=== PATIENT | female | born 1940 | race Caucasian/White ===

== ENCOUNTER 2020-07-02 19:29 | Inpatient (IN) | payer MEDICARE, BC ==
[~2020-07-02] VITALS: Ht 165.1 cm; Wt 106.6 kg
[2020-07-02] MEDS ORDERED: dilTIAZem 25 MG/5 ML VIAL IVP ONE ×2 (20:00→20:30)
[2020-07-02] MEDS ORDERED: dilTIAZem VIAL 125 MG in IV NORMAL SALINE 100ML 100 ML IV ONE (20:00)
[2020-07-02] MEDS ORDERED: IV RINGERS SOLUTION,LACTATED 1,000 ML IV ONE ×2 (20:00→21:15)
[2020-07-02] MEDS ORDERED: IV NORMAL SALINE 100ML 100 ML ONE ×2 (20:00→21:21)
--- NOTE | 2020-07-02 20:16 | PHYS DOC ---
Adult General Chief Complaint Chief Complaint: WEAKNESS/GENERALIZED HPI HPI Patient is a 79-year-old female who presents to the emergency department via EMS. Patient has no complaints. EMS core drill operator helper states they were called out to the residence because their neighbor had concerns when she came over to help the patient with her medications. Morphology Teacher had concerns that the patient appeared short of breath, appeared to have cellulitis of both her lower extremities. Morphology Teacher also states the patient's left wrist looked reddened. Morphology Teacher had social concerns for the patient's ability to care for herself and for her . The patient does complain of left wrist pain when asked. Patient denies chest pain, denies shortness of breath, denies chest congestion, denies nasal congestion, denies recent fever or chills, denies rashes of her skin, states that she uses a walker to ambulate around her home. Patient reports she lives at home with her who had a stroke "sometime back "and requires total care. Patient's is at bedside. (LILY MATHEW APRN) Review of Systems Review of Systems 14 body systems of review of systems have been reviewed. See HPI for pertinent positives and negative responses, otherwise all other systems are negative, nonpertinent or noncontributory. (LILY MATHEW APRN) Current Medications Current Medications Current Medications Medications (Trade) Dose Ordered Sig/Jacqueline Start Time Stop Time Status Last Admin Dose Admin Diltiazem HCl (Cardizem Iv Push) 25 mg 1X ONCE 07/02/20 20:00 07/02/20 20:01 UNV Diltiazem HCl 125 mg/Sodium Chloride 125 ml @ 5 mls/hr 1X ONCE 07/02/20 20:00 07/03/20 20:59 UNV (LILY MATHEW APRN) Physical Exam Physical Exam Constitutional: Well developed, well nourished, no acute distress, non-toxic appearance. Patient in mild respiratory distress. HENT: Normocephalic, atraumatic, bilateral external ears normal, oropharynx moist, no oral exudates, nose normal. Oropharynx moist, pink, no signs of tonsillar or deep tissue infection. Bilateral TMs within normal limits. Eyes: PERRLA, EOMI, conjunctiva normal, no discharge. Neck: Normal range of motion, no tenderness, supple, no stridor. No midline spinal tenderness, no nuchal rigidity, no meningismus signs appreciated. Cardiovascular:Heart rate rapid with irregular rhythm. Lungs & Thorax: Bilateral breath sounds clear to auscultation all lung mendez, diminished at bases, no other adventitious lung sounds appreciated. Abdomen: Bowel sounds normal, soft, no tenderness, no masses, no pulsatile masses. Abdomen round, patient obese. Skin: Warm, dry, no erythema, no rash. Except for under lower abdominal fold into periarea is red, excoriated, consistent with fungal infection. Back: No tenderness of the spine or structures of the patient's back to palpation. Extremities: No tenderness, no cyanosis, no clubbing, ROM intact, no edema. 2+ pitting edema bilateral lower extremities. Left upper extremity reddened at the wrist area, no crepitus appreciated, distal cap refill less than 2 seconds, 2+ radial pulse. Increased pain with palpation to the wrist ulnar aspect. Neurologic: Alert and oriented X 3, normal motor function, normal sensory function, no focal deficits noted. Psychologic: Affect normal, judgement normal, mood normal. (LILY MATHEW APRN) EKG EKG EKG performed at 1948 shows A. fib RVR with a heart rate 152 bpm, QTc interval 0.455, no acute STEMI, no ACS, no acute ischemia appreciated, EKG interpreted by ED physician Dr. Nolasco. (LILY MATHEW APRN) Radiology/Procedures Radiology/Procedures [] (LILY MATHEW APRN) Heart Score C/O Chest Pain: No HEART Score for Chest Pain: HEART Score for Chest Pain Response (Comments) Value History Slighlty/Non-Suspicious 0 ECG Normal 0 Age > 65 2 Total 2 Risk Factors: Risk Factors: DM, Current or recent (<one month) smoker, HTN, HLP, family history of CAD, obesity. Risk Scores: Risk Factors: DM, Current or recent (<one month) smoker, HTN, HLP, family history of CAD, obesity. (LILY MATHEW APRN) Course & Med Decision Making Course & Med Decision Making Pertinent Labs and Imaging studies reviewed. (See chart for details) 79-year-old female, vital signs reviewed, presents emergency department brought by EMS for social reasons. Patient has no complaints. Patient's physical examination is concerning for cardiorespiratory versus infectious process. And ED work-up was initiated. Patient's EKG concerning for A. fib RVR, patient was treated with 2 boluses Cardizem and a Cardizem drip. Patient's cath UA concerning for urinary tract infection along with 17.4 white blood cell count, patient concerning for sepsis with UTI, patient's labs show acute kidney injury with creatinine of 2.7. Discussed with patient recommendation for admission to the hospital, patient was amenable to this. Discussed patient case with [facility] inpatient physician Dr. Vigil who agreed to accept care of patient and admit to the intensive care unit for the diagnosis of A. fib RVR, acute kidney injury, sepsis, UTI, with the information he was given by me. Dr. Alaniz has assumed patient care at this time, patient awaiting bed in the ICU at [facility]. Patient cares for her at home who has history of stroke with severe mental deficits. Patient requires total care by patient at home, there are no known family members to care for patient's . Discussed case with warehouse director whom suggested patient be admitted for social admit, discussed this with Dr. Vigil who agreed to admit patient's for social admit. (LILY MATHEW APRN) Course & Med Decision Making Discussed patient's care, reviewed labs and EKG with [facility]. Agree with [facility]'s work- up and disposition. (CHARLEEN NOLASCO MD) Dragon Disclaimer Dragon Disclaimer This electronic medical record was generated, in whole or in part, using a voice recognition dictation system. (LILY MATHEW APRN) Departure Departure: Impression: Primary Impression: Atrial fibrillation with RVR Additional Impressions: Sepsis Urinary tract infection Acute kidney injury Disposition: 09 ADMITTED INPT THIS HOSP (Admit to Dr. Vigil to the ICU at [facility].) Admitting Physician: Desiree Vigil (LILY MATHEW APRN) Condition: GUARDED Referrals: NOLVIA PIZANO MD (PCP) Problem Qualifiers Additional Impressions: Sepsis Sepsis type: sepsis due to unspecified organism Sepsis acute organ dysfunction status: unspecified Qualified Codes: A41.9 - Sepsis, unspecified organism Urinary tract infection Urinary tract infection type: site unspecified Hematuria presence: with hematuria Qualified Codes: N39.0 - Urinary tract infection, site not specified; R31.9 - Hematuria, unspecified LILY MATHEW APRN Jul 02, 2020 20:16 CHARLEEN NOLASCO MD Jul 02, 2020 22:15
[2020-07-02 20:24] LABS: BASO % 0 % (0-3); EOS % 0 % (0-3); HEMATOCRIT 44.3 % (36.0-47.0); HEMOGLOBIN 14.5 g/dL (12.0-15.5); LYMPH % 6 % (24-48); MEAN CORPUSCULAR HEMOGLOBIN 32 pg (25-35); MEAN CORPUSCULAR HGB CONC 33 g/dL (31-37); MEAN CORPUSCULAR VOLUME 97 fL (79-100); MONO # 1.2 x10^3/uL (0.0-1.1); MONO % 7 % (0-9); NEUT # 15.1 x10^3uL (1.8-7.7); NEUT % 87 % (31-73); PLATELET COUNT 245 x10^3/uL (140-400); RED BLOOD COUNT 4.56 x10^6/uL (3.50-5.40); RED CELL DISTRIBUTION WIDTH 12.8 % (11.5-14.5); WHITE BLOOD COUNT 17.4 x10^3/uL (4.0-11.0)
--- NOTE | 2020-07-02 20:34 | RAD ---
AP chest. HISTORY: Tachycardia AP view was taken of the chest. Patient's taken a poor inspiration. There is mild linear atelectasis or scarring in both lung bases. Heart is normal in size. There is no pleural effusion. There are no o ther acute infiltrates. 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 IMPRESSION: 1. Poor inspiration. 2. Linear basilar scarring or atelectasis. 3. No other infiltrates. Electronically signed by: Zechariah Lopez MD (07/02/2020 8:32 PM) [facility]
[2020-07-02 20:35] LABS: BILIRUBIN,URINE NEG (NEG); CLARITY,URINE CLOUDY; COLOR,URINE YELLOW; GLUCOSE,URINE NEG (NEG); NITRITE,URINE NEG (NEG); UROBILINOGEN,URINE 0.2 mg/dL (0.2 mg/dL)
--- NOTE | 2020-07-02 20:35 | RAD ---
Right wrist 3 views. HISTORY: Injury, pain 3 views were taken of the right wrist. There is marked arthritis at the first carpal metacarpal joint with joint space narrowing and spurring. There is no acute fracture. There is arthritis at the inter phalangeal joint of the thumb with joint space narrowing and spurring. IMPRESSION: 1. Arthritis left wrist. 2. No acute fracture. Electronically signed by: Zechariah Lopez MD (07/02/2020 8:33 PM) [facility]
[2020-07-02 20:36] LABS: AMORPHOUS SEDIMENT,UR PRESENT /HPF; BACTERIA,URINE MANY /HPF (0-FEW); SQUAMOUS EPITHELIAL CELL,UR FEW /LPF; WBC,URINE >40 /HPF (0-4)
[2020-07-02 20:36] LABS: CALCIUM 9.7 mg/dL (8.5-10.1); CREATININE 2.7 mg/dL (0.6-1.0); GFR 17.1; POTASSIUM 4.3 mmol/L (3.5-5.1)
[2020-07-02 20:42] LABS: % BANDS 2 % (0-9); % LYMPHS 7 % (24-48); % MONOS 8 % (0-10); % SEGS 83 % (35-66); ALBUMIN 3.5 g/dL (3.4-5.0); ALBUMIN/GLOBULIN RATIO 0.8 (1.0-1.7); MAGNESIUM 2.1 mg/dL (1.8-2.4); PHOSPHORUS 3.4 mg/dL (2.6-4.7); PLT ESTIMATE ADEQUATE (ADEQUATE); TOTAL BILIRUBIN 1.4 mg/dL (0.2-1.0)
[2020-07-02] MEDS ORDERED: cefTRIAXone SODIUM 1 GM VIAL ONE (20:42)
[2020-07-02] MEDS ORDERED: IV NORMAL SALINE 50ML 50 ML ONE (20:42)
--- NOTE | 2020-07-02 22:13 | EKG ---
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
[2020-07-02 23:50] VITALS: BP 182/119
--- NOTE | 2020-07-02 23:50 | NUR ---
Pt admitted to ICU bed 2 from ER via [facility], accompanied by EMS and nursing staff. Pt moved over from rney to bed x3 assist. Pt here for c/o weakness/Falls, Afib with RVR and UTI. Admission assessment completed. Health history reviewed with pt. Home medication bottles here in belongings bag, reviewed with pt. Pt lives at home with her , who requires total care from her r/t hx of CVAs & Dementia. Pt's Magdy was also admitted to hospital on the Med/Surg unit for a social situation, as she is his primary caregiver and she required admission tonight. Pt attempted to void on bedpan, HR now in 150's. Holden catheter placed using aseptic technique, immediate return of 450cc of cloudy urine. Pt with excoriation and maceration under both breast & abd folds/pannus, pictures taken and placed in chart. Eliquis for VTE. Pt UTD of flu vaccine. Consult placed to rn case mgr/SW, PT/OT and Cardiology. Pt is on Cardizem gtt, with current HR 110-130's while laying in bed. Discussed POC, pt verbalize understanding. Call light in reach. Pt was given written information regarding hospital policies, unit procedures and contact persons. Valuables were checked and logged, left in room with pt.
[2020-07-03] VITALS (38 sets, daily range): BP systolic 124–168; BP diastolic 61–128
[2020-07-03] MEDS ORDERED: EZET10TA20 PO (00:48)
[2020-07-03] MEDS ORDERED: APIX5TAB5 PO (00:48)
[2020-07-03] MEDS ORDERED: METO50TA4 PO (00:48)
[2020-07-03] MEDS ORDERED: GLUC1TAB71 PO (00:48)
[2020-07-03] MEDS ORDERED: ATOR10TA60 PO (00:48)
[2020-07-03] MEDS ORDERED: IRBE300T23 PO (00:48)
[2020-07-03] MEDS ORDERED: ACET-422 PO (00:48)
[2020-07-03] MEDS ORDERED: CHOL200044 PO (00:48)
[2020-07-03] MEDS ORDERED: ACET500T68 PO (00:48)
[2020-07-03] MEDS: dilTIAZem VIAL 125 MG in IV NORMAL SALINE 100ML 100 ML IV PRN ×2 (05:40→15:29)
[2020-07-03] MEDS: APIXABAN 5 MG TABLET. PO SCH ×2 (09:52→20:12)
[2020-07-03 13:56] LABS: HEMATOCRIT 39.7 % (36.0-47.0); RED BLOOD COUNT 4.09 x10^6/uL (3.50-5.40); RED CELL DISTRIBUTION WIDTH 12.8 % (11.5-14.5); WHITE BLOOD COUNT 15.5 x10^3/uL (4.0-11.0)
[2020-07-03 14:03] LABS: CALCIUM 8.9 mg/dL (8.5-10.1); CREATININE 2.4 mg/dL (0.6-1.0); GFR 19.6; POTASSIUM 4.1 mmol/L (3.5-5.1)
[2020-07-03 14:10] LABS: ALBUMIN 2.8 g/dL (3.4-5.0); ALBUMIN/GLOBULIN RATIO 0.7 (1.0-1.7); TOTAL BILIRUBIN 1.1 mg/dL (0.2-1.0); TOTAL PROTEIN 6.9 g/dL (6.4-8.2)
[2020-07-03] MEDS ORDERED: ACETAMINOPHEN PO PRN (14:45)
[2020-07-03] MEDS ORDERED: DIPHENHYDRAMINE PO PRN (14:45)
--- NOTE | 2020-07-03 15:15 | HP ---
ADMIT DATE: 07/03/2020 HISTORY OF PRESENT ILLNESS: The patient is a 79-year-old female patient, who was brought to the Emergency Department via EMS. According to the hosted services analyst, they were called out to residence because their neighbor had concern when she came over to help the patient's with her medications. Machine Hand had concern that the patient appeared short of breath, appeared to have cellulitis of both lower extremities. They also stated that the patient's left breast looked reddened, hosted services analyst had social concern for the patient's ability to take care of herself and for her . The patient does complain of left wrist pain when asked, but denied any chest pain, denied any shortness of breath, denied any chest congestion, denied any nasal congestion, denied any recent fever or chills, denied any rashes. She lives at home with her who had a stroke, sometimes back and requires total care. She was extensively investigated in the Emergency Room. Her EKG showed that she was in atrial fibrillation with rapid ventricular response with a heart rate of 153. She has received 2 boluses of Cardizem and started on a Cardizem drip and a decision was made to admit here. However, initially, the patient refused and decided to leave against medical advice as she stated that she is worried about her who cannot take care of himself and eventually both the patient and her were admitted to the hospital, so that the patient can be given the appropriate care. Further investigation in the Emergency Room showed that she has leukocytosis, impaired kidney function. Urinalysis showed the urine showed positive for wbc's and large amount of bacteria. Her chest x-ray showed poor inspiration, linear basilar scarring, atelectasis, no other infiltrates and x-ray of her wrist joint showed arthritis of the left wrist joint, but no acute fracture. The patient was admitted with sepsis secondary to urinary tract infection, acute on chronic kidney injury and atrial fibrillation with rapid ventricular response. She was started on a Cardizem drip and apparently was continued on her Eliquis. PAST MEDICAL HISTORY: Significant for chronic kidney disease, morbid obesity with a body mass index more than 30, bilateral osteoarthritis of both knee joints, hypertensive disorder, chronic atrial fibrillation, hyperlipidemia, hyperglycemia, chronic pain syndrome and assisted current use of anticoagulation. PAST SURGICAL HISTORY: Unremarkable. FAMILY HISTORY: She is a single child. She has no brothers or sisters. Her father in his early 70s due to myocardial infarction and mother in her early 80s, also secondary to myocardial infarction. SOCIAL HISTORY: She is , has no children. She never smoked, does not drink alcohol or use any recreational drugs. 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 ALLERGIES: She has no known drug allergies. MEDICATIONS: She is currently on following medications: She is on apixaban 5 mg twice a day, Zetia 10 mg once a day, atorvastatin calcium 10 mg at bedtime, metoprolol succinate 50 mg twice a day, irbesartan 300 mg daily, acetaminophen 500 mg 3 times a day, acetaminophen PM 1 tablet once a day at bedtime for insomnia, ____ 50 mcg once a day and glucosamine ____ Osteo Bi-Flex tablet 1 tablet daily. REVIEW OF SYSTEMS: As per history of present illness. PHYSICAL EXAMINATION: GENERAL: On arrival to the Emergency Room, the patient was somewhat pale, tachypneic, tachycardic, but there is no jaundice or cyanosis. No lymphadenopathy, no thyromegaly. No jugular venous distention. Mild bilateral lower limb edema. VITAL SIGNS: Her heart rate on arrival was 145, blood pressure was 113/78, temperature was 99.1, respiratory rate was 34 and oxygen saturation was 93%. HEAD, EYES, EARS, NOSE AND THROAT: Showed normocephalic and atraumatic. NECK: Supple. HEART: Showed normal first and second heart sounds. No gallop, rub or murmur. CHEST: Showed central trachea, equally reduced expansion, reduced air entry, vesicular breath sounds. I could not appreciate any crepitation or rhonchi. ABDOMEN: Distended, soft, nontender. NEUROLOGIC: She is awake, alert, responding appropriately. All cranial nerves intact. EXTREMITIES: She moves extremities without difficulty, although she is complaining of weakness both lower extremities. LABORATORY DATA: Her lab work on admission showed a white cell count of 17,400; hemoglobin 14.5; hematocrit 44; MCV 97 and platelet count 245,000 with a manual differential showed 87% polymorphs, 6% lymphocytes and 7% monocytes. Her chemistry showed a serum sodium of 145, potassium 4.3, chloride 107, bicarbonate 22, anion gap of 16, BUN 38, creatinine was 2.7, estimated GFR was 17 mL per minute. Her glucose was 118, calcium was 8.3. Lactic acid was 1.7, phosphorus was 3.4, magnesium was 2.1. Total bilirubin and alkaline phosphatase slightly elevated. AST and ALT are normal. Her total protein was 8, albumin was 3.5. Her arterial blood gases showed a pH of 7.40, pCO2 of 31, pO2 of 30 and bicarbonate 19 that was a venous gases. Her prothrombin time was 11.6, INR 1.1, aPTT was 31 and D-dimer was 0.45. Urinalysis showed the urine was yellow, cloudy with a pH of 5.5, specific gravity of 1.030. There is more than 100 mg/dL protein. The urine was negative for glucose, ketones, moderate amount of blood, negative for nitrite and bilirubin, small amount of leukocyte esterase, 6-10 rbc's, more than 30 wbc's, and many bacteria. Her chest x-ray showed that inspiration was poor with linear basilar scarring, atelectasis, no other infiltrate. Her left wrist x-ray showed arthritis of the left wrist without any acute fracture. PLAN: The patient was admitted with atrial fibrillation with rapid ventricular response, urinary tract infection, sepsis and acute kidney injury. She was treated with Cardizem drip and after receiving 2 boluses of Cardizem in the Emergency Room as well as continued on apixaban and lactobacillus rhamnosus. We have consulted the rn dermatology and we will reconcile all her medications. AVIS LUCAS MD DR: ISSAC/rekha JOB#: [id number] / [id number]
[2020-07-03] MEDS: NYSTATIN TOPICAL POWDER 15GM BOTTLE. TP SCH ×2 (15:31→20:13)
[2020-07-03] MEDS: CHOLECALCIFEROL (VITAMIN D3) 1,000 UNIT TABLET PO SCH (15:31)
[2020-07-03] MEDS: EZETIMIBE 10 MG TABLET PO SCH (15:31)
[2020-07-03] MEDS ORDERED: METOPROLOL SUCC 24HR ER 50 MG TAB.ER.24H. PO SCH (15:40)
[2020-07-03] MEDS: IV RINGERS SOLUTION,LACTATED 1,000 ML IV SCH (17:45)
[2020-07-03] MEDS: METOPROLOL SUCC 24HR ER 50 MG TAB.ER.24H. PO SCH (17:50)
--- NOTE | 2020-07-03 18:32 | PDOC2 ---
CONSULT DOS: DATE: 07/03/20 TIME: 18:26 Reason for Consult: Rapid atrial fibrillation Referring Physician: Dr. Vigil Chief Complaint Shortness of breath, weakness Source: Chart review, Patient Problem List Problems Medical Problems: (1) Acute kidney injury Status: Acute (2) Atrial fibrillation with RVR Status: Acute (3) Sepsis Status: Acute (4) Urinary tract infection Status: Acute History of Present Illness The patient is a 79-year-old female who was admitted through the emergency room with a presentation of shortness of breath, increasing lower extremity edema and rapid atrial fibrillation. Significant lab included a white count of 17.4, p otassium of 4.1, creatinine of 2.4, troponin of less than 0.017 and a D-dimer 0.45. Patient's initial EKG showed rapid atrial fibrillation with a rate of greater than 150. She reportedly has a history of chronic atrial fibrillation, hypertension, hyperlipidemia and chronic kidney disease. On admission the patient was also found to have a probable urinary tract infection and is being treated by the primary service for this. She is a somewhat difficult historian but reports feeling more comfortable today. She denies chest pain. Her heart rate is approximately 100 bpm after IV Cardizem. She is continuing on Eliquis for which she is on at home Cardiovascular: AFIB, CAD, CHF, HTN, hyperipidemia Pulmonary: Bronchitis Musculoskeletal: Osteoarthritis Renal/: Chronic renal insuff Past Surgical History: No pertinent history Family History: Coronary Artery Disease, Heart Disease Smoke: No ALCOHOL: none Current Medications Current Medications Diltiazem HCl (Cardizem Iv Push) 25 mg 1X ONCE IVP Last administered on 07/02/20at 20:00; Start 07/02/20 at 20:00; Stop 07/02/20 at 20:01; Status DC Diltiazem HCl 125 mg/Sodium Chloride 125 ml @ 5 mls/hr 1X ONCE IV Last administered on 07/02/20at 20:02; Start 07/02/20 at 20:00; Stop 07/02/20 at 21:24; Status DC Lactated Ringer's 1,000 ml @ 1,000 mls/hr 1X ONCE IV Last administered on 07/02/20at 20:04; Start 07/02/20 at 20:00; Stop 07/02/20 at 20:59; Status DC Sodium Chloride 100 ml @ As Directed STK-MED ONCE .ROUTE ; Start 07/02/20 at 20:00; Stop 07/02/20 at 20:01; Status DC Diltiazem HCl (Cardizem) 125 mg STK-MED ONCE IV ; Start 07/02/20 at 20:01; Stop 07/02/20 at 20:01; Status DC Diltiazem HCl (Cardizem Iv Push) 25 mg 1X ONCE IVP Last administered on 07/02/20at 20:29; Start 07/02/20 at 20:30; Stop 07/02/20 at 20:31; Status DC Ceftriaxone Sodium 1 gm/ Sodium Chloride 50 ml @ 100 mls/hr 1X ONCE IV Last administered on 07/02/20at 20:46; Start 07/02/20 at 20:45; Stop 07/02/20 at 21:14; Status DC Sodium Chloride 50 ml @ As Directed STK-MED ONCE .ROUTE ; Start 07/02/20 at 20:42; Stop 07/02/20 at 20:43; Status DC Ceftriaxone Sodium (Rocephin) 1 gm STK-MED ONCE .ROUTE ; Start 07/02/20 at 20:42; Stop 07/02/20 at 20:43; Status DC Lactated Ringer's 1,000 ml @ 125 mls/hr 1X ONCE IV Last administered on 07/02/20at 21:15; Start 07/02/20 at 21:15; Stop 07/03/20 at 05:14; Status DC Sodium Chloride 100 ml @ As Directed STK-MED ONCE .ROUTE ; Start 07/02/20 at 21:21; Stop 07/02/20 at 21:21; Status DC Diltiazem HCl (Cardizem) 125 mg STK-MED ONCE IV ; Start 07/02/20 at 21:21; Stop 07/02/20 at 21:22; Status DC Diltiazem HCl 125 mg/Sodium Chloride 125 ml @ 5 mls/hr CONT PRN IV SEE I/O RECORD Last administered on 07/03/20at 15:29; Start 07/02/20 at 21:30 Ceftriaxone Sodium 1 gm/ Sodium Chloride 50 ml @ 100 mls/hr Q24H IV ; Start 07/03/20 at 21:00 Nystatin (Nystop) 1 susan BID TP Last administered on 07/03/20at 15:31; Start 07/03/20 at 09:00 Apixaban (Eliquis) 5 mg BID PO Last administered on 07/03/20at 09:52; Start 07/03/20 at 09:45 Lactobacillus Rhamnosus (Culturelle) 1 cap BID PO ; Start 07/03/20 at 21:00 Acetaminophen (Tylenol) 500 mg PRN TID PRN PO PAIN; Start 07/03/20 at 14:45 Atorvastatin Calcium (Lipitor) 10 mg QHS PO ; Start 07/03/20 at 21:00 EZETIMIBE (Zetia) 10 mg DAILY PO Last administered on 07/03/20at 15:31; Start 07/03/20 at 15:00 Metoprolol Succinate (Toprol Xl) 50 mg BID PO ; Start 07/03/20 at 15:40; Stop 07/03/20 at 16:57; Status DC Non-Formulary Medication (Acetaminophen/ Diphenhydramine (Acetaminophen Pm Caplet)) 1 each PRN QHS PRN PO INSOMNIA; Start 07/03/20 at 14:45; Status UNV Vitamin D (Vitamin D3) 2,000 unit DAILY PO Last administered on 07/03/20at 15:31; Start 07/03/20 at 15:00 Non-Formulary Medication (Glucosamine/D3/ Boswellia Magdalena (Osteo Bi-Flex Caplet)) 1 each DAILY PO ; Start 07/04/20 at 09:00; Status UNV Diphenhydramine HCl (Benadryl) 25 mg PRN QHS PRN PO INSOMNIA; Start 07/03/20 at 21:00 Metoprolol Succinate (Toprol Xl) 50 mg BID PO Last administered on 07/03/20at 17:50; Start 07/03/20 at 17:00 Lactated Ringer's 1,000 ml @ 75 mls/hr [id number] IV Last administered on 07/03/20at 17:45; Start 07/03/20 at 17:45 Active Scripts Active Reported D3-2000 (Cholecalciferol (Vitamin D3)) 50 Mcg Capsule 50 Mcg PO DAILY LAST DOSE GIVEN: DATE: TIME: NEXT DOSE DUE: DATE: TIME: Acetaminophen 500 Mg Tablet 500 Mg PO PRN TID PRN LAST DOSE GIVEN: DATE: TIME: NEXT DOSE DUE: DATE: TIME: Toprol Xl (Metoprolol Succinate) 50 Mg Tab.er.24h 50 Mg PO BID LAST DOSE GIVEN: DATE: TIME: NEXT DOSE DUE: DATE: TIME: Osteo Bi-Flex Caplet (Glucosamine/D3/Boswellia Magdalena) 1 Each Tablet 1 Each PO DAILY LAST DOSE GIVEN: DATE: TIME: NEXT DOSE DUE: DATE: TIME: Eliquis (Apixaban) 5 Mg Tab.ds.pk 5 Mg PO BID LAST DOSE GIVEN: DATE: TIME: NEXT DOSE DUE: DATE: TIME: Acetaminophen Pm Caplet (Acetaminophen/Diphenhydramine) 1 Each Tablet 1 Each PO PRN QHS PRN LAST DOSE GIVEN: DATE: TIME: NEXT DOSE DUE: DATE: TIME: Atorvastatin Calcium 10 Mg Tablet 10 Mg PO QHS LAST DOSE GIVEN: DATE: TIME: NEXT DOSE DUE: DATE: TIME: Irbesartan 300 Mg Tablet 300 Mg PO DAILY LAST DOSE GIVEN: DATE: TIME: NEXT DOSE DUE: DATE: TIME: Zetia (Ezetimibe) 10 Mg Tablet 10 Mg PO DAILY LAST DOSE GIVEN: DATE: TIME: NEXT DOSE DUE: DATE: TIME: Allergies: Coded Allergies: No Known Allergies (Verified Allergy, Unknown, 07/02/20) General: YES: Fatigue Respiratory: YES: SOB with excertion General: mild distress HEENT: Atraumatic Lungs: Other (Mildly decreased breath sounds) Heart: Other (Irregularly irregular) Abdomen: Normal bowel sounds VITALS Vital Signs Date Time Temp Pulse Resp B/P (MAP) Pulse Ox O2 Delivery O2 Flow Rate FiO2 07/03/20 17:50 104 147/73 07/03/20 17:00 19 90 Nasal Cannula 2.0 07/03/20 16:00 98.0 Labs Laboratory Tests Test 07/02/20 19:53 07/02/20 20:04 07/02/20 20:25 07/03/20 13:48 White Blood Count 17.4 x10^3/uL (4.0-11.0) 15.5 x10^3/uL (4.0-11.0) Red Blood Count 4.56 x10^6/uL (3.50-5.40) 4.09 x10^6/uL (3.50-5.40) Hemoglobin 14.5 g/dL (12.0-15.5) 13.0 g/dL (12.0-15.5) Hematocrit 44.3 % (36.0-47.0) 39.7 % (36.0-47.0) Mean Corpuscular Volume 97 fL (79-100) 97 fL (79-100) Mean Corpuscular Hemoglobin 32 pg (25-35) 32 pg (25-35) Mean Corpuscular Hemoglobin Concent 33 g/dL (31-37) 33 g/dL (31-37) Red Cell Distribution Width 12.8 % (11.5-14.5) 12.8 % (11.5-14.5) Platelet Count 245 x10^3/uL (140-400) 203 x10^3/uL (140-400) Neutrophils (%) (Auto) 87 % (31-73) Lymphocytes (%) (Auto) 6 % (24-48) Monocytes (%) (Auto) 7 % (0-9) Eosinophils (%) (Auto) 0 % (0-3) Basophils (%) (Auto) 0 % (0-3) Neutrophils # (Auto) 15.1 x10^3uL (1.8-7.7) Lymphocytes # (Auto) 1.0 x10^3/uL (1.0-4.8) Monocytes # (Auto) 1.2 x10^3/uL (0.0-1.1) Eosinophils # (Auto) 0.0 x10^3/uL (0.0-0.7) Basophils # (Auto) 0.0 x10^3/uL (0.0-0.2) Segmented Neutrophils % 83 % (35-66) Band Neutrophils % 2 % (0-9) Lymphocytes % 7 % (24-48) Monocytes % 8 % (0-10) Platelet Estimate Adequate (ADEQUATE) Prothrombin Time 11.6 SEC (9.4-11.4) Prothromb Time International Ratio 1.1 (0.9-1.1) Activated Partial Thromboplast Time 31 SEC (23-33) D-Dimer (Roshni) 0.45 mg/L (0.00-0.50) Sodium Level 145 mmol/L (136-145) 144 mmol/L (136-145) Potassium Level 4.3 mmol/L (3.5-5.1) 4.1 mmol/L (3.5-5.1) Chloride Level 107 mmol/L (98-107) 111 mmol/L (98-107) Carbon Dioxide Level 22 mmol/L (21-32) 25 mmol/L (21-32) Anion Gap 16 (6-14) 8 (6-14) Blood Urea Nitrogen 38 mg/dL (7-20) 34 mg/dL (7-20) Creatinine 2.7 mg/dL (0.6-1.0) 2.4 mg/dL (0.6-1.0) Estimated GFR (Cockcroft-Gault) 17.1 19.6 BUN/Creatinine Ratio 14 (6-20) 14 (6-20) Glucose Level 118 mg/dL (70-99) 124 mg/dL (70-99) Lactic Acid Level 1.7 mmol/L (0.4-2.0) Calcium Level 9.7 mg/dL (8.5-10.1) 8.9 mg/dL (8.5-10.1) Phosphorus Level 3.4 mg/dL (2.6-4.7) Magnesium Level 2.1 mg/dL (1.8-2.4) Total Bilirubin 1.4 mg/dL (0.2-1.0) 1.1 mg/dL (0.2-1.0) Aspartate Amino Transf (AST/SGOT) 16 U/L (15-37) 18 U/L (15-37) Alanine Aminotransferase (ALT/SGPT) 21 U/L (14-59) 20 U/L (14-59) Alkaline Phosphatase 125 U/L (46-116) 106 U/L (46-116) Troponin I Quantitative < 0.017 ng/mL (0-0.055) Total Protein 8.0 g/dL (6.4-8.2) 6.9 g/dL (6.4-8.2) Albumin 3.5 g/dL (3.4-5.0) 2.8 g/dL (3.4-5.0) Albumin/Globulin Ratio 0.8 (1.0-1.7) 0.7 (1.0-1.7) Thyroid Stimulating Hormone (TSH) 2.095 uIU/mL (0.358-3.740) Urine Collection Type U cath Urine Color Yellow Urine Clarity Cloudy Urine pH 5.5 Urine Specific [place] >=1.030 Urine Protein >100 mg/dl (NEG-TRACE) Urine Glucose (UA) Neg mg/dL (NEG) Urine Ketones (Stick) Trace mg/dL (NEG) Urine Blood Mod (NEG) Urine Nitrite Neg (NEG) Urine Bilirubin Neg (NEG) Urine Urobilinogen Dipstick 0.2 mg/dL (0.2 mg/dL) Urine Leukocyte Esterase Small (NEG) Urine RBC 6-10 /HPF (0-2) Urine WBC >40 /HPF (0-4) Urine Squamous Epithelial Cells Few /LPF Urine Amorphous Sediment Present /HPF Urine Bacteria Many /HPF (0-FEW) Bedside Venous pH 7.40 (7.32-7.42) Bedside Venous pCO2 31 mmHg (41-51) Bedside Venous pO2 30 mmHg (20-40) Venous Blood HCO3 19 mmol/L (24-28) POC Venous O2 Saturation (Arthur) 59 % Bedside FiO2 21 Assessment/Plan 1. Rapid atrial fibrillation. Patient reportedly has chronic atrial fibrillation. She is on Eliquis at home and this has been continued. She is also on metoprolol at home. Her rate was significantly elevated as noted above and on IV Cardizem her rate is now approximately 100. Would attempt to taper off IV Cardizem as tolerated. Continue oral beta-blockers and will start low- dose oral calcium channel blockers as well. 2. Acute kidney insufficiency on chronic renal disease. Creatinine elevated to 2.4 as above. Be initially treated with fluids and close monitoring. 3. Hypertension. Under reasonable control at this time. We will monitor his medicines are adjusted. 4. Hyperlipidemia. Continue on home medications including Lipitor and Zetia. 5. Probable UTI. As per the primary service. Thank you for allowing us to participate in the care of your patient. LAUREN SUH MD Jul 03, 2020 18:32
[2020-07-03] MEDS: ATORVASTATIN CALCIUM 10 MG TABLET. PO SCH (20:12)
[2020-07-03] MEDS: LACTOBACILLUS RHAMNOSUS GG 1 CAPSULE. PO SCH (20:12)
[2020-07-03] MEDS: diphenhydrAMINE HCL 25 MG CAPSULE PO PRN (20:12)
[2020-07-03] MEDS: ACETAMINOPHEN 500 MG TABLET PO PRN (20:12)
[2020-07-04] VITALS (19 sets, daily range): BP systolic 103–166; BP diastolic 67–110
[2020-07-04] MEDS: dilTIAZem VIAL 125 MG in IV NORMAL SALINE 100ML 100 ML IV PRN (01:05)
[2020-07-04 06:33] LABS: HEMATOCRIT 39.1 % (36.0-47.0); HEMOGLOBIN 12.5 g/dL (12.0-15.5); RED BLOOD COUNT 3.9 x10^6/uL (3.50-5.40); RED CELL DISTRIBUTION WIDTH 13.1 % (11.5-14.5)
[2020-07-04 06:54] LABS: ALBUMIN 2.6 g/dL (3.4-5.0); ALBUMIN/GLOBULIN RATIO 0.6 (1.0-1.7); CALCIUM 9.1 mg/dL (8.5-10.1); CREATININE 2.5 mg/dL (0.6-1.0); GFR 18.7; TOTAL BILIRUBIN 0.6 mg/dL (0.2-1.0); TOTAL PROTEIN 6.8 g/dL (6.4-8.2)
[2020-07-04] MEDS: IV RINGERS SOLUTION,LACTATED 1,000 ML IV SCH ×2 (07:05→20:25)
[2020-07-04] MEDS ORDERED: NON FORMULARY ITEM (Glucosamine/D3/Boswellia Serra (Osteo Bi-Flex Caplet) 1 EACH) PO SCH (09:00)
[2020-07-04] MEDS: APIXABAN 5 MG TABLET. PO SCH ×2 (10:08→20:30)
[2020-07-04] MEDS: LACTOBACILLUS RHAMNOSUS GG 1 CAPSULE. PO SCH ×2 (10:08→20:22)
[2020-07-04] MEDS: METOPROLOL SUCC 24HR ER 50 MG TAB.ER.24H. PO SCH ×2 (10:08→20:30)
[2020-07-04] MEDS: CHOLECALCIFEROL (VITAMIN D3) 1,000 UNIT TABLET PO SCH (10:08)
[2020-07-04] MEDS: EZETIMIBE 10 MG TABLET PO SCH (10:08)
[2020-07-04] MEDS: NYSTATIN TOPICAL POWDER 15GM BOTTLE. TP SCH ×2 (10:17→20:37)
[2020-07-04] MEDS ORDERED: FUROSEMIDE 40 MG/4 ML VIAL IVP ONE (13:30)
--- NOTE | 2020-07-04 13:48 | PN ---
DATE: 07/04/2020 SUBJECTIVE: The patient is sitting comfortably in her recliner, in no apparent distress. She is feeling generally better. She is more awake, alert. She is not short of breath and her legs are swelling much, was able to walk with a walker for short distances. Denied any chest pain. Denied any dizziness or lightheadedness. She was on a Cardizem drip that was discontinued and she is now on Cardizem 120 mg once a day together with metoprolol 50 mg twice a day. PHYSICAL EXAMINATION: GENERAL: When I examined her, she looked well. There was definitely no pallor, jaundice, cyanosis or thyromegaly. No jugular venous distension. No limb edema. VITAL SIGNS: Her heart rate was 97, blood pressure was 147/89, temperature was 98, respiratory rate was 16, and oxygen saturation was 91% on 2 liters of oxygen. Without oxygen had dropped down to 88%. HEAD, EYES, EARS, NOSE AND THROAT: Showed normocephalic, atraumatic. NECK: Supple. HEART: Showed normal first and second heart sounds with no gallop, rub or murmur. CHEST: Showed central trachea, equal bilateral chest expansion, air entry, vesicular sounds, very few crepitations bilaterally. I could not appreciate any rhonchi. ABDOMEN: Distended, soft, nontender. NEUROLOGIC: She is more awake, alert, responding appropriately. All cranial nerves are intact. She moves extremities without difficulty. She ambulates with a walker. She has an indwelling Holden catheter. Her intake over the last 24 hours was 2400, output was 1050. LABORATORY DATA: As of this morning, her white cell count is down to 14,000, hemoglobin 12.5, hematocrit 39, MCV 100, and platelet count of 198,000. Her serum sodium was 144, potassium 4, chloride 110, bicarbonate 23, anion gap of 11, BUN 38, creatinine 2.5, estimated GFR was 18 mL per minute. Her glucose was 100, calcium was 9.1. Total bilirubin, AST, ALT, alkaline phosphatase were normal. Her total protein was 6.8, albumin was 2.6. Her D-dimer was 0.45. Her PT, INR and aPTT are all normal and urinalysis was consistent with urinary tract infection. Her urine culture has so far grown more than 100,000 colony forming per mL of gram-negative rods identified as Escherichia coli. The sensitivity is still pending. Her blood cultures so far showed no growth after 1 day. ASSESSMENT: In summary, this is a 79-year-old female patient who was admitted with atrial fibrillation with rapid ventricular response. The patient is known to have chronic atrial fibrillation. She is on Eliquis as well as metoprolol. She was treated with IV Cardizem boluses and Cardizem drip that was discontinued this morning. She is now on both calcium channel marlee as well as beta blockers and her heart rate is much improved. Acute kidney injury on chronic kidney disease: Her creatinine is down from 2.7-2.5. Other medical problems include hypertension and hyperlipidemia. She has urinary tract infection with growth of more than 100,000 colony forming units per mL of gram-negative rods identified as Escherichia coli. PLAN: My plan is to continue with diltiazem and metoprolol to control the heart rate. Continue with apixaban for stroke prevention. Continue with ceftriaxone for UTI, atorvastatin for hyperlipidemia. I will give her 40 mg of Lasix as she continued to have some shortness of breath and hypoxia and repeat all her lab works again tomorrow. AVIS LUCAS MD DR: ISSAC/rekha JOB#: [id number] / [id number]
--- NOTE | 2020-07-04 19:31 | NUR ---
Pt wishes to have her best friend as medical power of channel marketing specialist Alma Nickerson- [phone]
[2020-07-04] MEDS: ACETAMINOPHEN 500 MG TABLET PO PRN (20:22)
[2020-07-04] MEDS: diphenhydrAMINE HCL 25 MG CAPSULE PO PRN (20:31)
[2020-07-04] MEDS: ATORVASTATIN CALCIUM 10 MG TABLET. PO SCH (20:31)
--- NOTE | 2020-07-05 06:13 | NUR ---
07/04/20 @1999- incorrect data entered. Pt not experiencing pain, rates 0/10. Addendum: 07/05/20 at 0618 by LORNE MUNGUIA RN Amended: Links added.
[2020-07-05 07:07] LABS: ALBUMIN 2.6 g/dL (3.4-5.0); ALBUMIN/GLOBULIN RATIO 0.7 (1.0-1.7); CREATININE 2.6 mg/dL (0.6-1.0); GFR 17.8; HEMATOCRIT 39.5 % (36.0-47.0); HEMOGLOBIN 12.8 g/dL (12.0-15.5); POTASSIUM 3.9 mmol/L (3.5-5.1); RED BLOOD COUNT 4.03 x10^6/uL (3.50-5.40); TOTAL BILIRUBIN 0.4 mg/dL (0.2-1.0); TOTAL PROTEIN 6.6 g/dL (6.4-8.2); WHITE BLOOD COUNT 11.8 x10^3/uL (4.0-11.0)
[2020-07-05] MEDS: EZETIMIBE 10 MG TABLET PO SCH (09:04)
[2020-07-05] MEDS: APIXABAN 5 MG TABLET. PO SCH ×2 (09:04→20:21)
[2020-07-05] MEDS: CHOLECALCIFEROL (VITAMIN D3) 1,000 UNIT TABLET PO SCH (09:04)
[2020-07-05] MEDS: METOPROLOL SUCC 24HR ER 50 MG TAB.ER.24H. PO SCH ×2 (09:04→20:22)
[2020-07-05] MEDS: LACTOBACILLUS RHAMNOSUS GG 1 CAPSULE. PO SCH ×2 (09:04→20:21)
[2020-07-05] MEDS: NYSTATIN TOPICAL POWDER 15GM BOTTLE. TP SCH ×2 (11:08→21:00)
[2020-07-05] MEDS: IV RINGERS SOLUTION,LACTATED 1,000 ML IV SCH (12:17)
--- NOTE | 2020-07-05 13:10 | PN ---
DATE: 07/05/2020 SUBJECTIVE: The patient is sitting comfortably in her recliner, in no apparent respiratory distress. On questioning her, denied any complaint. Nursing staff did not voice any concerns that she has an eventful night. She apparently has been up and about walking with a walker. PHYSICAL EXAMINATION: GENERAL: When I examined her, she was somewhat pale. No jaundice, cyanosis or thyromegaly. No jugular venous distension. No limb edema. VITAL SIGNS: Her heart rate was 80, blood pressure was 148/89, temperature 97.9, respiratory rate 20, and oxygen saturation was 95%. HEAD, EYES, EARS, NOSE, AND THROAT: Showed normocephalic, atraumatic. NECK: Supple. HEART: Normal first and second heart sounds. No gallop, rub or murmur. CHEST: Clear to auscultation. No crepitation or rhonchi. ABDOMEN: Distended, soft, nontender. NEUROLOGIC: She is awake, alert, responding appropriately. All cranial nerves intact. She moves extremities without difficulty. She ambulates with a walker. She has an indwelling Holden catheter. Her intake was 2600, output was 900. LABORATORY DATA: As of this morning, her white cell count was 11,800, hemoglobin 12.8, hematocrit 39, MCV 98 and platelet count 202,000. Serum sodium was 144, potassium 3.9, chloride 109, bicarbonate 26, anion gap of 9, BUN 38, creatinine 2.5, estimated GFR was 18 mL per minute. Her glucose 95, calcium was 9. Total bilirubin, AST, ALT, alkaline phosphatase were normal. Total protein 6.6, albumin was 2.6. ASSESSMENT: 1. Atrial fibrillation with rapid ventricular response, rate controlled now with anticoagulated. 2. She has acute kidney injury on chronic kidney disease. Her creatinine has stabilized around 2.5. 3. Hypertension. 4. Hyperlipidemia. 5. Urinary tract infection with growth of more than 100,000 colony forming units per mL of gram-negative rods identified as Escherichia coli. PLAN: My plan is to continue with diltiazem and metoprolol to control the heart rate. Continue with apixaban for her stroke prevention. Continue with ceftriaxone for UTI. I will discontinue the IV fluid as well as the indwelling Holden catheter. Continue with physical and occupational therapy. She is scheduled to be discharged to [facility] on Tuesday. AVIS LUCAS MD DR: ISSAC/rekha JOB#: [id number] / [id number]
[2020-07-05 14:07] VITALS: BP 173/89
[2020-07-05] MEDS: ATORVASTATIN CALCIUM 10 MG TABLET. PO SCH (20:21)
[2020-07-05 23:06] VITALS: BP 150/95
--- NOTE | 2020-07-05 23:50 | NUR ---
Assumed care of pt, report taken from JOHN Gomez.
[2020-07-06 05:24] VITALS: BP 147/89
--- NOTE | 2020-07-06 08:25 | PDOC ---
DATE OF SERVICE DOS: DATE: 07/05/20 TIME: 1 pm SUBJECTIVE Subjective: No new events overnight. Exam Constitutional: Well developed, well nourished, no acute distress, non-toxic appearance. [] HENT: Normocephalic, atraumatic, bilateral external ears normal, oropharynx moist, no oral exudates, nose normal. [] Eyes: PERRLA, EOMI, conjunctiva normal, no discharge. [] Neck: Normal range of motion, no tenderness, supple, no stridor. [] Cardiovascular:irregular rhythm, no murmur [] Lungs & Thorax: Bilateral breath sounds with mild rhonchi [] Abdomen: Bowel sounds normal, soft, no tenderness, no masses, no pulsatile masses. [] Skin: bilateral lower ext venous stasis changes. [] Back: No tenderness, no CVA tenderness. [] Extremities: No tenderness, no cyanosis, no clubbing, ROM intact, 1+ edema[] Neurologic: Alert and oriented X 3, normal motor function, normal sensory function, no focal deficits noted. [] Psychologic: Affect normal, judgement normal, mood normal. [] OBJECTIVE Vital Signs/I&O Vital Signs Date Time Temp Pulse Resp B/P (MAP) Pulse Ox O2 Delivery O2 Flow Rate FiO2 07/06/20 05:24 98.1 105 24 147/89 (108) 94 Room Air 07/05/20 17:00 2.0 I & O 07/05/20 07/05/20 07/06/20 15:00 23:00 07:00 Intake Total 435 ml 65 ml 240 ml Balance 435 ml 65 ml 240 ml Lab Labs reviewed. Tele reviewed. MEDICATIONS Medications diltiazem, atorvastatin, metoprolol, zetia and eliquis. PLAN Plan 1. Chronic afib 2. Diastolic HF - acute on chronic. 3. HTN 4. DAVID on CKD. Plan: - 1. Continue same. Lasix prn for LE edema but appears to be stable. 2. Ok to DC from CV standpoint for rehab. Continue anticoagulation. She has chronic atrial fibrillation. Outpt f/u with cardiology after echo and MPI. FERNANDEZ CASTREJON MD Jul 06, 2020 08:25
[2020-07-06 08:29] LABS: BASO % 0 % (0-3); EOS # 0.3 x10^3/uL (0.0-0.7); EOS % 3 % (0-3); HEMATOCRIT 43.8 % (36.0-47.0); HEMOGLOBIN 14.1 g/dL (12.0-15.5); LYMPH # 1.5 x10^3/uL (1.0-4.8); LYMPH % 12 % (24-48); MEAN CORPUSCULAR HEMOGLOBIN 31 pg (25-35); MEAN CORPUSCULAR HGB CONC 32 g/dL (31-37); MEAN CORPUSCULAR VOLUME 98 fL (79-100); MONO # 0.8 x10^3/uL (0.0-1.1); MONO % 6 % (0-9); NEUT # 10.4 x10^3uL (1.8-7.7); NEUT % 80 % (31-73); PLATELET COUNT 228 x10^3/uL (140-400); RED BLOOD COUNT 4.49 x10^6/uL (3.50-5.40); RED CELL DISTRIBUTION WIDTH 12.7 % (11.5-14.5)
[2020-07-06 08:31] LABS: CALCIUM 9.6 mg/dL (8.5-10.1); CREATININE 2.4 mg/dL (0.6-1.0); GFR 19.6; POTASSIUM 4.1 mmol/L (3.5-5.1)
[2020-07-06] MEDS: APIXABAN 5 MG TABLET. PO SCH ×2 (08:32→19:53)
[2020-07-06] MEDS: METOPROLOL SUCC 24HR ER 50 MG TAB.ER.24H. PO SCH ×2 (08:32→19:54)
[2020-07-06] MEDS: CHOLECALCIFEROL (VITAMIN D3) 1,000 UNIT TABLET PO SCH (08:32)
[2020-07-06] MEDS: EZETIMIBE 10 MG TABLET PO SCH (08:32)
[2020-07-06] MEDS: LACTOBACILLUS RHAMNOSUS GG 1 CAPSULE. PO SCH ×2 (08:32→19:53)
[2020-07-06] MEDS: NYSTATIN TOPICAL POWDER 15GM BOTTLE. TP SCH ×2 (08:33→21:00)
[2020-07-06 11:22] VITALS: BP 156/85
[2020-07-06] MEDS: ACETAMINOPHEN 500 MG TABLET PO PRN (14:25)
[2020-07-06] MEDS: CEFDINIR 300 MG CAPSULE PO SCH (14:25)
[2020-07-06 15:00] VITALS: BP 166/84
[2020-07-06] MEDS: ATORVASTATIN CALCIUM 10 MG TABLET. PO SCH (19:54)
[2020-07-06] MEDS: diphenhydrAMINE HCL 25 MG CAPSULE PO PRN (19:54)
[2020-07-06 20:08] VITALS: BP 155/89
--- NOTE | 2020-07-06 22:07 | PN ---
DATE: 07/06/2020 SUBJECTIVE: The patient is sitting comfortably in her chair, in no apparent distress. She apparently managed to walk all the way to the shower room with a walker, had a shower and is generally feeling much improved. PHYSICAL EXAMINATION: GENERAL: When I examined her, she looked well and was clearly in no apparent respiratory distress. No pallor, jaundice, cyanosis or thyromegaly. No jugular venous distention. Mild bilateral lower limb edema. VITAL SIGNS: Her heart rate was 94, blood pressure 156/85, temperature 97.8, respiratory rate 22, and oxygen saturation was 92% on room air. HEAD, EYES, EARS, NOSE AND THROAT: Showed normocephalic, atraumatic. NECK: Supple. HEART: Showed normal first and second heart sounds. No gallop, rub or murmur. CHEST: Clear to auscultation. No crepitation or rhonchi. ABDOMEN: Distended, soft, nontender. NEUROLOGIC: She is awake, alert, responding appropriately. All cranial nerves intact. She moves extremities without difficulty. She is ambulating with a walker. Her intake over the last 24 hours was 650, output was 3150. LABORATORY DATA: Her white cell count was 13,000, hemoglobin 14, hematocrit 44, MCV 98 and platelet count 228,000. Her chemistry showed a serum sodium 141, potassium 4.1, chloride 108, bicarbonate 23, anion gap of 10, BUN 39, creatinine 2.4, estimated GFR was 19 mL per minute, his glucose 135, calcium was 9.6. ASSESSMENT: 1. Atrial fibrillation with rapid ventricular response, rate now controlled, well anticoagulated. 2. She has acute kidney injury on chronic kidney disease. Her creatinine has normalized, stabilized around 2.4. 3. Hypertension, well controlled. 4. Hyperlipidemia. 5. Urinary tract infection with growth of more than 100,000 colony forming units per mL of gram-negative rods identified as Escherichia coli. The bacteria is sensitive to almost all antibiotics. PLAN: My plan is to switch her to cefdinir and discontinue IV ceftriaxone. She will be discharged tomorrow to [facility] to continue the process of rehabilitation. AVIS LUCAS MD DR: ISSAC/rekha JOB#: [id number] / [id number]
[2020-07-06 23:51] VITALS: BP 178/101
--- NOTE | 2020-07-07 05:31 | NUR ---
PT UP AND DOWN THROUGH NIGHT. PT DENIES ANY PAIN. UP TO BSC X1 ASSIST TO VOID. PT ANXIOUS ABOUT WHETHER OR NOT HER HOME HAS BEEN LOCKED UP SINCE ADMISSION, BUT PT ALSO ADMITS THIS HAS BEEN CONFIRMED ON MULTIPLE OCCASIONS. PT IS EXPECTED TO JOIN HER AT [facility] LATER TODAY.
[2020-07-07 05:48] VITALS: BP 159/117
[2020-07-07] MEDS: CHOLECALCIFEROL (VITAMIN D3) 1,000 UNIT TABLET PO SCH (08:00)
[2020-07-07] MEDS: METOPROLOL SUCC 24HR ER 50 MG TAB.ER.24H. PO SCH (08:02)
[2020-07-07] MEDS: APIXABAN 5 MG TABLET. PO SCH (08:02)
[2020-07-07] MEDS: EZETIMIBE 10 MG TABLET PO SCH (08:02)
[2020-07-07] MEDS: LACTOBACILLUS RHAMNOSUS GG 1 CAPSULE. PO SCH (08:02)
[2020-07-07] MEDS: CEFDINIR 300 MG CAPSULE PO SCH (08:03)
[2020-07-07] MEDS: NYSTATIN TOPICAL POWDER 15GM BOTTLE. TP SCH (08:03)
--- NOTE | 2020-07-07 08:04 | PDOC ---
AL OOSRIO BRANDON 07/07/20 0804: CARDIO Progress Notes Date & Time Date of Service DATE: 07/07/20 TIME: 08:01 Time of Evaluation 08:01 Subjective Notes No chest pain, shortness of breath, or palpitations. Vitals Vitals Vital Signs Date Time Temp Pulse Resp B/P (MAP) Pulse Ox O2 Delivery O2 Flow Rate FiO2 07/07/20 05:48 98.3 100 20 159/117 (131) 94 Room Air 07/05/20 17:00 2.0 Weight Weight [ ] Input and Output I.O. Intake and Output 07/07/20 07:00 Intake Total 1590 ml Balance 1590 ml Intake Oral 1590 ml # Voids 9 # Bowel Movements 1 Laboratory Labs Laboratory Tests Test 07/06/20 07:55 White Blood Count 13.0 x10^3/uL (4.0-11.0) Red Blood Count 4.49 x10^6/uL (3.50-5.40) Hemoglobin 14.1 g/dL (12.0-15.5) Hematocrit 43.8 % (36.0-47.0) Mean Corpuscular Volume 98 fL (79-100) Mean Corpuscular Hemoglobin 31 pg (25-35) Mean Corpuscular Hemoglobin Concent 32 g/dL (31-37) Red Cell Distribution Width 12.7 % (11.5-14.5) Platelet Count 228 x10^3/uL (140-400) Neutrophils (%) (Auto) 80 % (31-73) Lymphocytes (%) (Auto) 12 % (24-48) Monocytes (%) (Auto) 6 % (0-9) Eosinophils (%) (Auto) 3 % (0-3) Basophils (%) (Auto) 0 % (0-3) Neutrophils # (Auto) 10.4 x10^3uL (1.8-7.7) Lymphocytes # (Auto) 1.5 x10^3/uL (1.0-4.8) Monocytes # (Auto) 0.8 x10^3/uL (0.0-1.1) Eosinophils # (Auto) 0.3 x10^3/uL (0.0-0.7) Basophils # (Auto) 0.0 x10^3/uL (0.0-0.2) Sodium Level 141 mmol/L (136-145) Potassium Level 4.1 mmol/L (3.5-5.1) Chloride Level 108 mmol/L (98-107) Carbon Dioxide Level 23 mmol/L (21-32) Anion Gap 10 (6-14) Blood Urea Nitrogen 39 mg/dL (7-20) Creatinine 2.4 mg/dL (0.6-1.0) Estimated GFR (Cockcroft-Gault) 19.6 Glucose Level 135 mg/dL (70-99) Calcium Level 9.6 mg/dL (8.5-10.1) Microbiology Micro Microbiology 07/02/20 Urine Culture - Final, Complete 07/02/20 Antimicrobic Susceptibility - Final, Complete 07/02/20 Blood Culture - Preliminary, Resulted NO GROWTH AFTER 4 DAYS... Physical Exams HEENT: Neck Supple W Full Motion Chest: Symmetric Lungs: Clear to Auscultation Heart: irregularly irregular (AFIB, rate controlled ) Abdomen: Soft N/T Extremities: No Edema Neurology: alert, follow commands Assessment Assessment 1. Chronic afib 2. Acute on chronic diastolic CHF 3. Hypertension 4. DAVDI on CKD; improved 5. UTI Recommendations Continue Cardizem for rate control Eliquis for stroke prophylaxis Lasix PRN Ok to DC from CV standpoint for rehab. Outpatient echo and MPI as arranged Follow up in our office with Dr. Shaffer as scheduled. FERNANDEZ SHAFFER MD 07/07/20 1704: CARDIO Progress Notes Plan Plan Patient seen and examined. Agree with above nurse practitioner note. Patient had GI bleeding this morning is been transfer to [facility]. Supportive care from a cardiovascular perspective. AL OSORIO APRN Jul 07, 2020 08:04 FERNANDEZ SHAFFER MD Jul 07, 2020 17:04
--- NOTE | 2020-07-07 10:26 | NUR ---
NURSING NOTE PT WAS ON HELPED TO COMMODE, PT HAD FILLED HER BRIEF WITH BLOOD AND HAD CLOTS IN HER BRIEF. PT COMMODE WAS ABOUT 1/4 TO 1/2 INCH OF LIQ/BLOOD WITH CLOTS. DR LUCAS NOTIFIED. ORDERS FOR STAT CBC OBTAINED. VITALS STABLE AT THIS TIME. PER PT, THIS HAS NEVER HAPPENED BEFORE. UNFORTUNATELY PT IS ON SCHEDULED ELIQUIS AND DID RECEIVE HER DOSE THIS AM WITH MORNING MEDICATIONS PRIOR TO BLEEDING FINDING. DR LUCAS NOTIFIED. ELIQUIS DISCONTINUED FOR FURTHER EVALUATION AND MONITORING. JOHN CARLTON.
[2020-07-07 10:30] VITALS: BP 162/111
[2020-07-07 10:40] LABS: BASO # 0.1 x10^3/uL (0.0-0.2); BASO % 1 % (0-3); EOS # 0.3 x10^3/uL (0.0-0.7); EOS % 2 % (0-3); HEMOGLOBIN 13.3 g/dL (12.0-15.5); LYMPH # 1.2 x10^3/uL (1.0-4.8); LYMPH % 11 % (24-48); MEAN CORPUSCULAR HEMOGLOBIN 32 pg (25-35); MEAN CORPUSCULAR HGB CONC 33 g/dL (31-37); MEAN CORPUSCULAR VOLUME 97 fL (79-100); MONO # 0.8 x10^3/uL (0.0-1.1); MONO % 7 % (0-9); NEUT # 9.3 x10^3uL (1.8-7.7); NEUT % 80 % (31-73); PLATELET COUNT 249 x10^3/uL (140-400); RED BLOOD COUNT 4.22 x10^6/uL (3.50-5.40); RED CELL DISTRIBUTION WIDTH 12.8 % (11.5-14.5); WHITE BLOOD COUNT 11.7 x10^3/uL (4.0-11.0)
[2020-07-07 11:30] LABS: CALCIUM 9.3 mg/dL (8.5-10.1); CREATININE 2.1 mg/dL (0.6-1.0); GFR 22.8; POTASSIUM 4.3 mmol/L (3.5-5.1)
[2020-07-07 14:41] VITALS: BP 143/80
--- NOTE | 2020-07-07 14:57 | NUR ---
NURSING NOTE DISCHARGE PT TRANSFERRED TO [facility] VIA EMS FOR GI BLEED. REPORT CALLED OT JOHN EDOUARD. NO COMPLICATIONS. JOHN CARLTON.
== END 2020-07-07 14:20 | disposition short-term general hospital (02) | DRG 871 ==
LOC: ER 19:29 → ICU 20:57 → 1 SOUTH 07-05 23:40
PROVIDERS: ADMIT Internal Medicine; ATTEND Internal Medicine
DX: A41.51 Sepsis due to Escherichia coli [E. coli] (principal); I50.33 Acute on chronic diastolic (congestive) heart failure; N17.0 Acute kidney failure with tubular necrosis; I13.0 Hypertensive heart and chronic kidney disease with heart failure and stage 1 through stage 4 chronic kidney disease, or unspecified chronic kidney disease; I48.20 Chronic atrial fibrillation, unspecified; N39.0 Urinary tract infection, site not specified; K92.2 Gastrointestinal hemorrhage, unspecified; B96.20 Unspecified Escherichia coli [E. coli] as the cause of diseases classified elsewhere; E78.5 Hyperlipidemia, unspecified; G89.4 Chronic pain syndrome; I25.10 Atherosclerotic heart disease of native coronary artery without angina pectoris; M19.90 Unspecified osteoarthritis, unspecified site; E66.01 Morbid (severe) obesity due to excess calories; N18.9 Chronic kidney disease, unspecified; Z79.01 Long term (current) use of anticoagulants; Z79.899 Other long term (current) drug therapy; Z82.49 Family history of ischemic heart disease and other diseases of the circulatory system; Z68.39 Body mass index [BMI] 39.0-39.9, adult
CPT/HCPCS: 36415; 71045; 73110; 80048; 80053; 80061; 81001; 82803; 83605; 83735; 83880; 84100; 84443; 84484; 85007; 85025; 85027; 85379; 85610; 85730; 87040; 87077; 87086; 87186; 93005; 96365; 96375; J0696; J1940; J3490; J7120; Q0163; 97116; 97530; 97535; 99285-25

== ENCOUNTER 2021-01-18 12:46 | Inpatient (IN) | payer MEDICARE, BC ==
[~2021-01-18] VITALS: Ht 165.1 cm; Wt 102.5 kg
[~2021-01-18 12:46] MED LIST: ACET-422 PO; ACET500T68 PO; APIX5TAB5 PO; ATOR10TA60 PO; CHOL200044 PO; EZET10TA20 PO; GLUC1TAB71 PO; IRBE300T23 PO; METO50TA4 PO
[2021-01-18] MEDS ORDERED: IV NORMAL SALINE 1,000ML 1,000 ML IV ONE ×2 (13:30→16:45)
--- NOTE | 2021-01-18 13:31 | PHYS DOC ---
Past History Past Medical History: A-Fib, High Cholesterol, Hypertension Past Surgical History: No Surgical History Alcohol Use: None General Adult EDM: Chief Complaint: FATIGUE HPI: HPI: 80-year-old female presents via EMS with fatigue and altered mental status. The patient has not been acting herself today. Family called EMS. When they arrived they found her oxygen saturation to be in the 80s and the patient was not answering questions easily. When they went to get her up, she was unable to stand. The patient tells me that she has been feeling weak but otherwise feels okay. She has a fever on arrival. She denies any other complaints or pain. She says that she has been taking all of her medications. Review of Systems: Review of Systems: Constitutional: Denies fever or chills Eyes: Denies change in visual acuity HENT: Denies nasal congestion or sore throat Respiratory: shortness of breath Cardiovascular: Denies chest pain or edema GI: Denies abdominal pain, nausea, vomiting, bloody stools or diarrhea : Denies dysuria Musculoskeletal: Denies back pain or joint pain Integument: Denies rash Neurologic: Denies headache, focal weakness or sensory changes Endocrine: Denies polyuria or polydipsia Lymphatic: Denies swollen glands Psychiatric: Denies depression or anxiety Allergies: Allergies: Allergies Coded Allergies Type Severity Reaction Last Updated Verified No Known Allergies Allergy Unknown 07/02/20 Yes Physical Exam: PE: Constitutional: Well developed, well nourished, obese, no acute distress. [] HENT: Normocephalic, atraumatic, bilateral external ears normal, oropharynx moist, no oral exudates, nose normal. [] Eyes: PERRLA, EOMI, conjunctiva normal, no discharge. [] Neck: Normal range of motion, no tenderness, supple, no stridor. [] Cardiovascular: Heart rate 120, regular rhythm, no murmur [] Lungs & Thorax: Bilateral breath sounds diminished but clear to auscultation [] Abdomen: Bowel sounds normal, soft, no tenderness, no masses, no pulsatile masses. [] Skin: Warm, dry, no erythema, no rash. [] Back: No tenderness, no CVA tenderness. [] Extremities: No tenderness, no cyanosis, no clubbing, ROM intact, no edema. [] Neurologic: Alert and oriented X 3, normal motor function, normal sensory function, no focal deficits noted. [] Psychologic: Affect flat, judgement normal, mood normal. [] EKG: EKG: Irregular rhythm, rate 123, leftward axis, no ST elevation or depression. [] Radiology/Procedures: Radiology/Procedures: [] Impressions: Exam Date: 01/18/2021 1:33 PM XR CHEST 1V Indication: Reason: SOB / Spl. Instructions: / History: . Comparison: July 02, 2020 FINDINGS/ IMPRESSION: The cardiac silhouette is enlarged. Prominent interstitial markings bilaterally are nonspecific but could represent interstitial edema or infection. Bibasilar atelectasis and/or scarring is seen. There is no appreciable pleural effusion or pneumothorax. Electronically signed by: Cece Okeefe MD (01/18/2021 2:05 PM) [facility] DICTATED AND SIGNED BY: CECE OKEEFE MD DATE: 01/18/21 1404 CC: DANNY WHELAN DO; NOLVIA PIZANO MD ~MTH0 0 Heart Score: C/O Chest Pain: No Risk Factors: Risk Factors: DM, Current or recent (<one month) smoker, HTN, HLP, family history of CAD, obesity. Risk Scores: Score 0 - 3: 2.5% MACE over next 6 weeks - Discharge Home Score 4 - 6: 20.3% MACE over next 6 weeks - Admit for Clinical Observation Score 7 - 10: 72.7% MACE over next 6 weeks - Early Invasive Strategies Course & Med Decision Making: Course & Med Decision Making Pertinent Labs and Imaging studies reviewed. (See chart for details) The patient has an elevated white count. Her other significant labs are elevated proBNP and creatinine. These are both similar with previous values. The patient wants to go home but we do not have the urinalysis back yet. I also doubt believe the patient can stand or walk on her own. Patient also has atrial fibrillation rate uncontrolled. I have given her 20 mg of Cardizem IV. The Cardizem did improve the patient's heart rate to around 100. It is slowly increasing back up to the 110s. Her urinalysis is significant for infection. I will treat her with a gram of Rocephin. I will admit the patient to the hospital. Spoke with Dr. Vigil and he has accepted the patient for admission. [] Dragon Disclaimer: Dragon Disclaimer: This electronic medical record was generated, in whole or in part, using a voice recognition dictation system. Departure Departure: Impression: Primary Impression: Atrial fibrillation with RVR Additional Impression: Urinary tract infection Disposition: ADMITTED INPATIENT Admitting Physician: Desiree Vigil Condition: STABLE Referrals: NOLVIA PIZANO MD (PCP) DANNY WHELAN DO Jan 18, 2021 13:31
[2021-01-18 13:50] LABS: BASO % 0 % (0-3); EOS # 0.1 x10^3/uL (0.0-0.7); EOS % 1 % (0-3); HEMATOCRIT 39.7 % (36.0-47.0); HEMOGLOBIN 12.7 g/dL (12.0-15.5); LYMPH % 7 % (24-48); MEAN CORPUSCULAR HEMOGLOBIN 29 pg (25-35); MEAN CORPUSCULAR HGB CONC 32 g/dL (31-37); MEAN CORPUSCULAR VOLUME 92 fL (79-100); MONO % 6 % (0-9); NEUT # 13.3 x10^3uL (1.8-7.7); NEUT % 87 % (31-73); PLATELET COUNT 270 x10^3/uL (140-400); RED BLOOD COUNT 4.31 x10^6/uL (3.50-5.40); RED CELL DISTRIBUTION WIDTH 14.9 % (11.5-14.5); WHITE BLOOD COUNT 15.4 x10^3/uL (4.0-11.0)
--- NOTE | 2021-01-18 13:59 | EKG ---
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
[2021-01-18 14:06] LABS: CALCIUM 9.6 mg/dL (8.5-10.1); CREATININE 2.8 mg/dL (0.6-1.0); GFR 16.3
--- NOTE | 2021-01-18 14:08 | RAD ---
Exam Date: 01/18/2021 1:33 PM XR CHEST 1V Indication: Reason: SOB / Spl. Instructions: / History: . Comparison: July 02, 2020 FINDINGS/ IMPRESSION: The cardiac silhouette is enlarged. Prominent interstitial markings bilaterally are nonspecific but could represent interstitial edema or infection. Bibasilar atelectasis and/or scarring is seen. There is no appreciable pleural effusion or pneumothorax. Electronically signed by: Florencio Okeefe MD (01/18/2021 2:05 PM) [facility]
[2021-01-18 14:21] LABS: ALBUMIN 3.1 g/dL (3.4-5.0); ALBUMIN/GLOBULIN RATIO 0.7 (1.0-1.7); TOTAL BILIRUBIN 0.9 mg/dL (0.2-1.0); TOTAL PROTEIN 7.7 g/dL (6.4-8.2)
[2021-01-18 15:15] LABS: % LYMPHS 9 % (24-48); % MONOS 6 % (0-10); % SEGS 85 % (35-66); PLT ESTIMATE ADEQUATE (ADEQUATE)
[2021-01-18] MEDS ORDERED: dilTIAZem 25 MG/5 ML VIAL IVP ONE ×2 (16:00→17:45)
[2021-01-18 16:59] LABS: BILIRUBIN,URINE NEG (NEG); CLARITY,URINE CLOUDY; COLOR,URINE YELLOW; GLUCOSE,URINE NEG (NEG); NITRITE,URINE NEG (NEG); UROBILINOGEN,URINE 0.2 mg/dL (0.2 mg/dL)
[2021-01-18 17:00] LABS: BACTERIA,URINE MANY /HPF (0-FEW); SQUAMOUS EPITHELIAL CELL,UR MOD /LPF
[2021-01-18] MEDS ORDERED: ONDANSETRON PF 4 MG/2 ML VIAL. IVP PRN (17:30)
[2021-01-18] MEDS ORDERED: MORPHINE SULFATE 2 MG/ML DISP.SYRIN. IVP PRN (17:30)
[2021-01-18] MEDS ORDERED: ACETAMINOPHEN 325 MG TABLET PO PRN (17:30)
[2021-01-18] MEDS ORDERED: dilTIAZem VIAL 125 MG in IV NORMAL SALINE 100ML 100 ML IV PRN (17:45)
[2021-01-18] MEDS ORDERED: ACETAMINOPHEN 325 MG TABLET PO ONE (17:45)
[2021-01-18] MEDS ORDERED: IV NORMAL SALINE 50ML 50 ML ONE (17:46)
[2021-01-18] MEDS ORDERED: cefTRIAXone SODIUM 1 GM VIAL ONE (17:47)
[2021-01-18 19:45] VITALS: BP 125/73
--- NOTE | 2021-01-18 19:45 | NUR ---
Pt admitted to ICU bed 3 from ER via [facility], accompanied by EMS and nursing staff. Pt moved over from gurney to bed x3 assist. Pt here for c/o weakness/falls at home requiring frequent EMS calls to "help get me up", Afib with RVR and UTI. Admission assessment completed. Health history reviewed with pt. Home medication reviewed with pt, "no changes". Pt lives at home with her Magdy, who requires total care from her r/t having a hx of CVA & Dementia. Pt is very concerned about here Magdy being home alone, ER called Police for a welfare check. Pt attempted to void on bedpan, HR now in 140's. Holden catheter placed using aseptic technique, immediate return of 650cc of cloudy yellow urine. Pt with excoriation and maceration under both breast & Abd folds/Pannus, pictures taken and placed in chart. Eliquis for VTE. Pt UTD of Covid vaccine, wants her Flu shot, order placed in computer. Consult placed to director case management, PT/OT and Cardiology. Pt has PRN Cardizem gtt ordered fro HR >110, pt with current HR 80-110's while laying in bed. Pt with O2 sat at 88%, placed on 2L NC, now >92%. Discussed POC, pt verbalize understanding. Call light in reach. Pt was given written information regarding hospital policies, unit procedures and contact persons. Valuables were checked and logged, left in room with pt. Pt ate pudding independently and took medications whole without difficulty.
[2021-01-18 20:00] VITALS: BP 130/65
[2021-01-18] MEDS ORDERED: NYST15PO9 TP (20:16)
[2021-01-18 20:30] VITALS: BP 123/65
[2021-01-18 21:00] VITALS: BP 105/63
[2021-01-18] MEDS ORDERED: APIX5TAB3 PO (21:09)
[2021-01-18] MEDS ORDERED: ANTI-COAG MONITOR BY PHARMACY. MC PRN (21:15)
[2021-01-18] MEDS: diphenhydrAMINE HCL 25 MG CAPSULE PO PRN (21:32)
[2021-01-18] MEDS: NYSTATIN TOPICAL POWDER 15GM BOTTLE. TP SCH (21:33)
[2021-01-18] MEDS: APIXABAN 5 MG TABLET. PO SCH (21:33)
[2021-01-18] MEDS: ATORVASTATIN CALCIUM 10 MG TABLET. PO SCH (21:33)
[2021-01-18] MEDS: ACETAMINOPHEN 500 MG TABLET PO PRN (21:33)
[2021-01-18 22:00] VITALS: BP 126/67
[2021-01-18 23:45] VITALS: BP 107/58
[2021-01-19] VITALS (16 sets, daily range): BP systolic 115–148; BP diastolic 61–92
[2021-01-19 06:59] LABS: BASO % 0 % (0-3); EOS # 0.3 x10^3/uL (0.0-0.7); EOS % 2 % (0-3); HEMATOCRIT 36.4 % (36.0-47.0); HEMOGLOBIN 11.5 g/dL (12.0-15.5); LYMPH # 1.3 x10^3/uL (1.0-4.8); LYMPH % 11 % (24-48); MEAN CORPUSCULAR HEMOGLOBIN 30 pg (25-35); MEAN CORPUSCULAR HGB CONC 32 g/dL (31-37); MEAN CORPUSCULAR VOLUME 93 fL (79-100); MONO % 8 % (0-9); NEUT # 9.7 x10^3uL (1.8-7.7); NEUT % 79 % (31-73); PLATELET COUNT 220 x10^3/uL (140-400); RED CELL DISTRIBUTION WIDTH 15.2 % (11.5-14.5); WHITE BLOOD COUNT 12.3 x10^3/uL (4.0-11.0)
[2021-01-19 07:27] LABS: ALBUMIN 2.5 g/dL (3.4-5.0); ALBUMIN/GLOBULIN RATIO 0.6 (1.0-1.7); CALCIUM 9.1 mg/dL (8.5-10.1); CREATININE 2.5 mg/dL (0.6-1.0); GFR 18.6; POTASSIUM 4.5 mmol/L (3.5-5.1); TOTAL BILIRUBIN 0.6 mg/dL (0.2-1.0); TOTAL PROTEIN 6.5 g/dL (6.4-8.2)
--- NOTE | 2021-01-19 08:49 | PDOC2 ---
CARDIAC CONSULT DATE OF CONSULT DOS: DATE: 01/19/21 TIME: 08:42 REASON FOR CONSULT Reason for Consult AFIB with RVR REFERRING PHYSICIAN Referring Physician Dr. Vigil SOURCE Source: Chart review HPI History of Present Illness This is a 80 yo female who presented secondary to altered mental status. EMS was called. Was noted to be hypoxic upon their arrival and was not answering questions appropriately. Was also noted in AFIB with elevated HR, which prompted this consult. UA + for UTI. Has known history of AFIB. Information obtain from chart review as patient remains confused and cannot tell me what brought her into the hospital. She denies any dizziness, diaphoresis, chest pain, palpitations, or dizziness. Has previous history of GIB in June of this year. Eliquis was discontinued at that time. Patient does not know if this was resumed. PAST MEDICAL HISTORY Cardiovascular: AFIB, CAD, CHF, HTN, hyperipidemia Psych: Anxiety Musculoskeletal: Osteoarthritis Renal/: Chronic renal insuff PAST SURGICAL HISTORY Past Surgical History: No pertinent history FAMILY HISTORY Family History: Heart Disease SOCIAL HISTORY Smoke: No ALCOHOL: none Drugs: None Lives: with Family CURRENT MEDICATIONS Current Medications Current Medications Sodium Chloride 1,000 ml @ 1,000 mls/hr 1X ONCE IV Last administered on 01/18/21at 14:08; Start 01/18/21 at 13:30; Stop 01/18/21 at 14:29; Status DC Diltiazem HCl (Cardizem Iv Push) 20 mg 1X ONCE IVP Last administered on 01/18/21at 16:41; Start 01/18/21 at 16:00; Stop 01/18/21 at 16:01; Status DC Sodium Chloride 1,000 ml @ 1,000 mls/hr 1X ONCE IV Last administered on 01/18/21at 16:40; Start 01/18/21 at 16:45; Stop 01/18/21 at 17:44; Status DC Ceftriaxone Sodium 1 gm/ Sodium Chloride 50 ml @ 100 mls/hr 1X ONCE IV Last administered on 01/18/21at 18:00; Start 01/18/21 at 17:30; Stop 01/18/21 at 17:59; Status DC Ondansetron HCl (Zofran) 4 mg PRN Q4HRS PRN IVP NAUSEA/VOMITING Last administered on 01/18/21at 17:56; Start 01/18/21 at 17:30; Stop 01/19/21 at 17:29 Morphine Sulfate (Morphine 2mg Syringe) 2 mg PRN Q2HR PRN IVP PAIN Last administered on 01/18/21at 17:58; Start 01/18/21 at 17:30; Stop 01/19/21 at 17:29 Acetaminophen (Tylenol) 650 mg PRN Q4HRS PRN PO FEVER > 100.3'F; Start 01/18/21 at 17:30; Stop 01/19/21 at 17:29 Acetaminophen (Tylenol) 650 mg 1X ONCE PO Last administered on 01/18/21at 18:03; Start 01/18/21 at 17:45; Stop 01/18/21 at 17:46; Status DC Diltiazem HCl (Cardizem Iv Push) 20 mg 1X ONCE IVP Last administered on 01/18/21at 17:54; Start 01/18/21 at 17:45; Stop 01/18/21 at 17:46; Status DC Diltiazem HCl 125 mg/Sodium Chloride 125 ml @ 5 mls/hr CONT PRN IV SEE I/O RECORD; Start 01/18/21 at 17:45 Sodium Chloride 50 ml @ As Directed STK-MED ONCE .ROUTE ; Start 01/18/21 at 17:46; Stop 01/18/21 at 17:47; Status DC Ceftriaxone Sodium (Rocephin) 1 gm STK-MED ONCE .ROUTE ; Start 01/18/21 at 17:47; Stop 01/18/21 at 17:47; Status DC Ceftriaxone Sodium 1 gm/ Sodium Chloride 50 ml @ 100 mls/hr Q24H IV ; Start 01/19/21 at 18:00 Nystatin (Nystop) 1 isaias BID TP ; Start 01/18/21 at 21:00 Atorvastatin Calcium (Lipitor) 10 mg QHS PO Last administered on 01/18/21at 21:33; Start 01/18/21 at 21:00 EZETIMIBE (Zetia) 10 mg DAILY PO ; Start 01/19/21 at 09:00 Acetaminophen (Tylenol) 500 mg PRN QHS PRN PO PAIN- INSOMNIA Last administered on 01/18/21at 21:33; Start 01/18/21 at 20:45 Vitamin D (Vitamin D3) 2,000 unit DAILY PO ; Start 01/19/21 at 09:00 Non-Formulary Medication (Glucosamine/D3/ Boswellia Magdalena (Osteo Bi-Flex Caplet)) 1 each DAILY PO ; Start 01/19/21 at 09:00; Status UNV Diphenhydramine HCl (Benadryl) 25 mg PRN QHS PRN PO INSOMNIA Last administered on 01/18/21at 21:32; Start 01/18/21 at 20:45 Apixaban (Eliquis) 5 mg BID PO Last administered on 01/18/21at 21:33; Start 01/18/21 at 21:30 Info (Anti-Coagulation Monitoring By Pharmacy) 1 each PRN DAILY PRN MC PER PROTOCOL; Start 01/18/21 at 21:15 Influenza Virus Vaccine Quadrival (Flulaval Quad Syringe) 0.5 ml ONCE ONCE VAX IM ; Start 01/19/21 at 09:00; Stop 01/19/21 at 09:01 Lactobacillus Rhamnosus (Culturelle) 1 cap BID PO ; Start 01/19/21 at 09:00 Active Scripts Active Reported Eliquis (Apixaban) 5 Mg Tablet 5 Mg PO BID LAST DOSE GIVEN: DATE: TIME: NEXT DOSE DUE: DATE: TIME: Nystatin 15 Gm Powder 1 Isaias TP BID apply to affected area(s) LAST DOSE GIVEN: DATE: TIME: NEXT DOSE DUE: DATE: TIME: D3-2000 (Cholecalciferol (Vitamin D3)) 50 Mcg Capsule 50 Mcg PO DAILY LAST DOSE GIVEN: DATE: TIME: NEXT DOSE DUE: DATE: TIME: Acetaminophen 500 Mg Tablet 500 Mg PO PRN TID PRN LAST DOSE GIVEN: DATE: TIME: NEXT DOSE DUE: DATE: TIME: Toprol Xl (Metoprolol Succinate) 50 Mg Tab.er.24h 50 Mg PO BID LAST DOSE GIVEN: DATE: TIME: NEXT DOSE DUE: DATE: TIME: Osteo Bi-Flex Caplet (Glucosamine/D3/Boswellia Magdalena) 1 Each Tablet 1 Each PO DAILY LAST DOSE GIVEN: DATE: TIME: NEXT DOSE DUE: DATE: TIME: Acetaminophen Pm Caplet (Acetaminophen/Diphenhydramine) 1 Each Tablet 1 Each PO PRN QHS PRN LAST DOSE GIVEN: DATE: TIME: NEXT DOSE DUE: DATE: TIME: Atorvastatin Calcium 10 Mg Tablet 10 Mg PO QHS LAST DOSE GIVEN: DATE: TIME: NEXT DOSE DUE: DATE: TIME: Irbesartan 300 Mg Tablet 300 Mg PO DAILY LAST DOSE GIVEN: DATE: TIME: NEXT DOSE DUE: DATE: TIME: Zetia (Ezetimibe) 10 Mg Tablet 10 Mg PO DAILY LAST DOSE GIVEN: DATE: TIME: NEXT DOSE DUE: DATE: TIME: ALLERGIES Allergies: Coded Allergies: No Known Allergies (Verified Allergy, Unknown, 07/02/20) ROS Review of Systems 14 point ROS conducted with pertinent positives noted above in hPI PHYSICAL EXAM General: Alert, Cooperative, No acute distress, Other (oriented to self only ) HEENT: Atraumatic, Mucous membr. moist/pink Lungs: Clear to auscultation Heart: Other (AFIB, rate controlled ) Abdomen: Soft, No tenderness Extremities: Normal pulses, Other (1+ bilateral LE edema ) Skin: No breakdown Neuro: Normal speech, Sensation intact Psych/Mental Status: Mood NL, Other (confused ) MUSCULOSKELETAL: Osteoarthritic changes both hands VITALS Vital Signs Vital Signs Date Time Temp Pulse Resp B/P (MAP) Pulse Ox O2 Delivery O2 Flow Rate FiO2 01/19/21 06:00 98.3 98 26 139/87 (104) 96 Nasal Cannula 2.0 LABS LABS Laboratory Tests Test 01/18/21 13:25 01/18/21 14:09 01/18/21 16:22 01/19/21 05:55 White Blood Count 15.4 x10^3/uL (4.0-11.0) 12.3 x10^3/uL (4.0-11.0) Red Blood Count 4.31 x10^6/uL (3.50-5.40) 3.90 x10^6/uL (3.50-5.40) Hemoglobin 12.7 g/dL (12.0-15.5) 11.5 g/dL (12.0-15.5) Hematocrit 39.7 % (36.0-47.0) 36.4 % (36.0-47.0) Mean Corpuscular Volume 92 fL (79-100) 93 fL (79-100) Mean Corpuscular Hemoglobin 29 pg (25-35) 30 pg (25-35) Mean Corpuscular Hemoglobin Concent 32 g/dL (31-37) 32 g/dL (31-37) Red Cell Distribution Width 14.9 % (11.5-14.5) 15.2 % (11.5-14.5) Platelet Count 270 x10^3/uL (140-400) 220 x10^3/uL (140-400) Neutrophils (%) (Auto) 87 % (31-73) 79 % (31-73) Lymphocytes (%) (Auto) 7 % (24-48) 11 % (24-48) Monocytes (%) (Auto) 6 % (0-9) 8 % (0-9) Eosinophils (%) (Auto) 1 % (0-3) 2 % (0-3) Basophils (%) (Auto) 0 % (0-3) 0 % (0-3) Neutrophils # (Auto) 13.3 x10^3uL (1.8-7.7) 9.7 x10^3uL (1.8-7.7) Lymphocytes # (Auto) 1.0 x10^3/uL (1.0-4.8) 1.3 x10^3/uL (1.0-4.8) Monocytes # (Auto) 1.0 x10^3/uL (0.0-1.1) 1.0 x10^3/uL (0.0-1.1) Eosinophils # (Auto) 0.1 x10^3/uL (0.0-0.7) 0.3 x10^3/uL (0.0-0.7) Basophils # (Auto) 0.0 x10^3/uL (0.0-0.2) 0.0 x10^3/uL (0.0-0.2) Segmented Neutrophils % 85 % (35-66) Lymphocytes % 9 % (24-48) Monocytes % 6 % (0-10) Platelet Estimate Adequate (ADEQUATE) Sodium Level 141 mmol/L (136-145) 143 mmol/L (136-145) Potassium Level 4.0 mmol/L (3.5-5.1) 4.5 mmol/L (3.5-5.1) Chloride Level 106 mmol/L (98-107) 110 mmol/L (98-107) Carbon Dioxide Level 25 mmol/L (21-32) 24 mmol/L (21-32) Anion Gap 10 (6-14) 9 (6-14) Blood Urea Nitrogen 29 mg/dL (7-20) 28 mg/dL (7-20) Creatinine 2.8 mg/dL (0.6-1.0) 2.5 mg/dL (0.6-1.0) Estimated GFR (Cockcroft-Gault) 16.3 18.6 BUN/Creatinine Ratio 10 (6-20) 11 (6-20) Glucose Level 110 mg/dL (70-99) 98 mg/dL (70-99) Lactic Acid Level 1.4 mmol/L (0.4-2.0) Calcium Level 9.6 mg/dL (8.5-10.1) 9.1 mg/dL (8.5-10.1) Total Bilirubin 0.9 mg/dL (0.2-1.0) 0.6 mg/dL (0.2-1.0) Aspartate Amino Transf (AST/SGOT) 11 U/L (15-37) 13 U/L (15-37) Alanine Aminotransferase (ALT/SGPT) 12 U/L (14-59) 9 U/L (14-59) Alkaline Phosphatase 167 U/L (46-116) 130 U/L (46-116) Troponin I Quantitative < 0.017 ng/mL (0-0.055) TK-Dus-A-Type Natriuretic Peptide 1432 pg/mL (0-449) Total Protein 7.7 g/dL (6.4-8.2) 6.5 g/dL (6.4-8.2) Albumin 3.1 g/dL (3.4-5.0) 2.5 g/dL (3.4-5.0) Albumin/Globulin Ratio 0.7 (1.0-1.7) 0.6 (1.0-1.7) Coronavirus (COVID-19)(PCR) Not detected (NEGATIVE) SARS-CoV-2 Antigen (Rapid) Negative (NEGATIVE) Urine Collection Type U cath Urine Color Yellow Urine Clarity Cloudy Urine pH 5.0 Urine Specific Naylor 1.025 Urine Protein 100 mg/dl (NEG-TRACE) Urine Glucose (UA) Neg mg/dL (NEG) Urine Ketones (Stick) Neg mg/dL (NEG) Urine Blood Mod (NEG) Urine Nitrite Neg (NEG) Urine Bilirubin Neg (NEG) Urine Urobilinogen Dipstick 0.2 mg/dL (0.2 mg/dL) Urine Leukocyte Esterase Small (NEG) Urine RBC 1-2 /HPF (0-2) Urine WBC 11-20 /HPF (0-4) Urine Squamous Epithelial Cells Mod /LPF Urine Bacteria Many /HPF (0-FEW) ASSESSMENT/PLAN Assessment/Plan 1. Chronic AFIB; presenting with RVR. rate better controlled, but remains mildly elevated. 2. Acute on chronic diastolic CHF; appears compensated 3. Hypertension; controlled overall 4. DAVID on CKD 5. Leukocytosis, fevers, UTI 6. Metabolic encephalopathy 7. H/o GIB (07/13). Eliquis was discontinued at this time. Recommendations Resume metoprolol for rate control Will need to clarify if Eliquis was previously resumed for stroke prophylaxis; Lasix PRN Ongoing antibiotic therapy, treatment of UTI. Outpatient echo AL OSORIO APRN Jan 19, 2021 08:49
[2021-01-19] MEDS ORDERED: NON FORMULARY ITEM (Glucosamine/D3/Boswellia Serra (Osteo Bi-Flex Caplet) 1 EACH) PO SCH (09:00)
[2021-01-19] MEDS: APIXABAN 5 MG TABLET. PO SCH (09:00)
[2021-01-19] MEDS ORDERED: FLU VACC QUAD 21-22 (6MOS+) PF 0.5 ML SYRINGE. VAX IM ONE (09:00)
[2021-01-19] MEDS: NYSTATIN TOPICAL POWDER 15GM BOTTLE. TP SCH ×2 (10:18→20:29)
[2021-01-19] MEDS: METOPROLOL SUCC 24HR ER 50 MG TAB.ER.24H. PO SCH (10:18)
[2021-01-19] MEDS: LACTOBACILLUS RHAMNOSUS GG 1 CAPSULE. PO SCH ×2 (10:18→20:29)
[2021-01-19] MEDS: EZETIMIBE 10 MG TABLET PO SCH (10:18)
[2021-01-19] MEDS: CHOLECALCIFEROL (VITAMIN D3) 1,000 UNIT TABLET PO SCH (10:19)
--- NOTE | 2021-01-19 15:52 | HP ---
HISTORY OF PRESENT ILLNESS: The patient is a 80-year-old female patient who was brought to the Emergency Room with complaint of fatigue and altered mental status. The patient has not been feeling or acting herself. Family called EMS. On arrival, her oxygen saturation was only 80%. The patient was not answering questions easily. When they went to get her up, she was unable to stand. The patient stated that she has been feeling weak for a week now, has a fever on arrival. She denied any other complaint and stated that she has been taking all her medications as prescribed. She was extensively evaluated in the Emergency Room and has had lab work as well as imaging studies. Her lab work showed that her white cell count was slightly high at 15,400. Her chemistry showed the creatinine was up slightly at 2.8 and her beta natriuretic peptide was 1432. Urinalysis was mostly unremarkable. She did have a small amount of leukocyte esterase, 1-2 rbc's, 11-20 wbc's, and many bacteria. Her chest x-ray showed the cardiac silhouette is enlarged, prominent interstitial markings bilaterally are nonspecific, but could represent interstitial edema or infection. She has bibasilar atelectasis and/or scarring seen. There is no appreciable pleural effusion or pneumothorax. Her coronavirus by PCR was not detectable. The patient was admitted with generalized weakness, altered mental status, was found to be in atrial fibrillation with rapid ventricular response as well as urinary tract infection. She apparently was treated with IV ceftriaxone and also received a bolus of Cardizem. For some reason, the Cardizem drip was canceled. PAST MEDICAL HISTORY: Significant for chronic kidney disease, morbid obesity with a body mass index of more than 30, bilateral osteoarthritis of both knee joints, hypertensive disorder, chronic atrial fibrillation, hyperlipidemia, hyperglycemia, chronic pain syndrome and lung attacks and long-term use of anticoagulation. PAST SURGICAL HISTORY: Unremarkable. FAMILY HISTORY: She is a single child. She has no brothers or sisters. Her father in his early 70s due to myocardial infarction. Mother in her early 80s secondary to myocardial infarction. SOCIAL HISTORY: She is , has no children. She never smoked, does not drink alcohol or use any recreational drugs. She is a [employer]. 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 ALLERGIES: She has no known drug allergies. MEDICATIONS: She is currently on the following medications: She is on apixaban 5 mg twice a day, Zetia 10 mg once a day, atorvastatin calcium 10 mg at bedtime, metoprolol succinate 50 mg once a day, irbesartan 300 mg daily, acetaminophen 500 mg 3 times a day, acetaminophen/diphenhydramine 1 tablet at bedtime for insomnia, she is on nystatin 15 grams powder apply topically twice a day and cholecalciferol 50 mcg once a day. She is also on glucosamine for Osteo Bi-Flex tablet 1 tablet p.o. daily. PHYSICAL EXAMINATION: GENERAL: On arrival to the Emergency Room, the patient looked well and was clearly in no apparent respiratory distress. There is no pallor, jaundice, cyanosis or thyromegaly. No jugular venous distention, but mild bilateral lower limb edema. VITAL SIGNS: Her heart rate was 116, blood pressure was 178/110, respiratory rate was 20, temperature was 98.4, and oxygen saturation was 93% on room air. HEAD, EYES, EARS, NOSE, AND THROAT: Showed normocephalic, atraumatic. NECK: Supple. HEART: Normal first and second heart sounds, no gallop or murmur. CHEST: Shows central trachea, equal bilateral chest expansion, air entry, vesicular breath sounds. She has bilateral basal crepitation. I could not appreciate any rhonchi. ABDOMEN: Distended, soft, nontender. NEUROLOGIC: She was grossly intact. LABORATORY DATA: Her lab work on arrival to the Emergency Room showed a white cell count of 15,400, hemoglobin 12.7, hematocrit 39, MCV 92 and platelet count 270,000 with an automated differential showing 87% polymorphs, 7% lymphocytes, and 6% monocytes. Her chemistry showed a serum sodium 141, potassium 4, chloride 106, bicarbonate 25, anion gap of 10, BUN 29, creatinine 2.8. Estimated GFR was 16 mL per minute. Her glucose was 110 and calcium was 9.6. Total bilirubin, AST, ALT, alkaline phosphatase were all normal. Beta natriuretic peptide was 1432 and total protein 7.7, albumin was 3.1. ASSESSMENT AND PLAN: The patient was admitted with diagnosis of generalized weakness, new onset atrial fibrillation with rapid ventricular response. Her urinalysis also was consistent with urinary tract infection, for which she was started on IV ceftriaxone, although her blood cultures are so far negative. ISSAC/MIGDALIA DR: Elena TID: [id number]
[2021-01-19] MEDS: ACETAMINOPHEN 500 MG TABLET PO PRN (20:29)
[2021-01-19] MEDS: ATORVASTATIN CALCIUM 10 MG TABLET. PO SCH (20:29)
[2021-01-19] MEDS: diphenhydrAMINE HCL 25 MG CAPSULE PO PRN (20:29)
[2021-01-20] VITALS (7 sets, daily range): BP systolic 109–147; BP diastolic 68–85
--- NOTE | 2021-01-20 08:32 | PDOC ---
CARDIO Progress Notes Date & Time Date of Service DATE: 01/20/21 TIME: 08:31 Time of Evaluation 08:31 Subjective Notes No chest pain, palpitations, dizziness, diaphoresis Vitals Vitals Vital Signs Date Time Temp Pulse Resp B/P (MAP) Pulse Ox O2 Delivery O2 Flow Rate FiO2 01/20/21 05:45 98.8 90 24 147/85 (105) 94 Nasal Cannula 2.0 Weight Weight [ ] Input and Output I.O. Intake and Output 01/20/21 07:00 Intake Total 1550 ml Output Total 350 ml Balance 1200 ml Intake Oral 1500 ml IV Total 50 ml Output Urine Total 350 ml Laboratory Labs Laboratory Tests Test 01/18/21 13:25 01/18/21 14:09 01/18/21 16:22 01/19/21 05:55 White Blood Count 15.4 x10^3/uL (4.0-11.0) 12.3 x10^3/uL (4.0-11.0) Red Blood Count 4.31 x10^6/uL (3.50-5.40) 3.90 x10^6/uL (3.50-5.40) Hemoglobin 12.7 g/dL (12.0-15.5) 11.5 g/dL (12.0-15.5) Hematocrit 39.7 % (36.0-47.0) 36.4 % (36.0-47.0) Mean Corpuscular Volume 92 fL (79-100) 93 fL (79-100) Mean Corpuscular Hemoglobin 29 pg (25-35) 30 pg (25-35) Mean Corpuscular Hemoglobin Concent 32 g/dL (31-37) 32 g/dL (31-37) Red Cell Distribution Width 14.9 % (11.5-14.5) 15.2 % (11.5-14.5) Platelet Count 270 x10^3/uL (140-400) 220 x10^3/uL (140-400) Neutrophils (%) (Auto) 87 % (31-73) 79 % (31-73) Lymphocytes (%) (Auto) 7 % (24-48) 11 % (24-48) Monocytes (%) (Auto) 6 % (0-9) 8 % (0-9) Eosinophils (%) (Auto) 1 % (0-3) 2 % (0-3) Basophils (%) (Auto) 0 % (0-3) 0 % (0-3) Neutrophils # (Auto) 13.3 x10^3uL (1.8-7.7) 9.7 x10^3uL (1.8-7.7) Lymphocytes # (Auto) 1.0 x10^3/uL (1.0-4.8) 1.3 x10^3/uL (1.0-4.8) Monocytes # (Auto) 1.0 x10^3/uL (0.0-1.1) 1.0 x10^3/uL (0.0-1.1) Eosinophils # (Auto) 0.1 x10^3/uL (0.0-0.7) 0.3 x10^3/uL (0.0-0.7) Basophils # (Auto) 0.0 x10^3/uL (0.0-0.2) 0.0 x10^3/uL (0.0-0.2) Segmented Neutrophils % 85 % (35-66) Lymphocytes % 9 % (24-48) Monocytes % 6 % (0-10) Platelet Estimate Adequate (ADEQUATE) Sodium Level 141 mmol/L (136-145) 143 mmol/L (136-145) Potassium Level 4.0 mmol/L (3.5-5.1) 4.5 mmol/L (3.5-5.1) Chloride Level 106 mmol/L (98-107) 110 mmol/L (98-107) Carbon Dioxide Level 25 mmol/L (21-32) 24 mmol/L (21-32) Anion Gap 10 (6-14) 9 (6-14) Blood Urea Nitrogen 29 mg/dL (7-20) 28 mg/dL (7-20) Creatinine 2.8 mg/dL (0.6-1.0) 2.5 mg/dL (0.6-1.0) Estimated GFR (Cockcroft-Gault) 16.3 18.6 BUN/Creatinine Ratio 10 (6-20) 11 (6-20) Glucose Level 110 mg/dL (70-99) 98 mg/dL (70-99) Lactic Acid Level 1.4 mmol/L (0.4-2.0) Calcium Level 9.6 mg/dL (8.5-10.1) 9.1 mg/dL (8.5-10.1) Total Bilirubin 0.9 mg/dL (0.2-1.0) 0.6 mg/dL (0.2-1.0) Aspartate Amino Transf (AST/SGOT) 11 U/L (15-37) 13 U/L (15-37) Alanine Aminotransferase (ALT/SGPT) 12 U/L (14-59) 9 U/L (14-59) Alkaline Phosphatase 167 U/L (46-116) 130 U/L (46-116) Troponin I Quantitative < 0.017 ng/mL (0-0.055) LH-Qil-U-Type Natriuretic Peptide 1432 pg/mL (0-449) Total Protein 7.7 g/dL (6.4-8.2) 6.5 g/dL (6.4-8.2) Albumin 3.1 g/dL (3.4-5.0) 2.5 g/dL (3.4-5.0) Albumin/Globulin Ratio 0.7 (1.0-1.7) 0.6 (1.0-1.7) Coronavirus (COVID-19)(PCR) Not detected (NEGATIVE) SARS-CoV-2 Antigen (Rapid) Negative (NEGATIVE) Urine Collection Type U cath Urine Color Yellow Urine Clarity Cloudy Urine pH 5.0 Urine Specific [place] 1.025 Urine Protein 100 mg/dl (NEG-TRACE) Urine Glucose (UA) Neg mg/dL (NEG) Urine Ketones (Stick) Neg mg/dL (NEG) Urine Blood Mod (NEG) Urine Nitrite Neg (NEG) Urine Bilirubin Neg (NEG) Urine Urobilinogen Dipstick 0.2 mg/dL (0.2 mg/dL) Urine Leukocyte Esterase Small (NEG) Urine RBC 1-2 /HPF (0-2) Urine WBC 11-20 /HPF (0-4) Urine Squamous Epithelial Cells Mod /LPF Urine Bacteria Many /HPF (0-FEW) Microbiology Micro Microbiology 01/18/21 Blood Culture - Final, Complete Physical Exams HEENT: Neck Supple W Full Motion Chest: Symmetric Lungs: Clear to Auscultation, Other (diminished bases) Heart: irregularly irregular (AFIB) Abdomen: Soft N/T Extremities: Other (1+ bilateral LE edema ) Neurology: alert, follow commands, confused Assessment Assessment 1. Chronic AFIB; presenting with RVR. rate now controlled 2. Acute on chronic diastolic CHF; appears compensated 3. Hypertension; controlled 4. DAVID on CKD 5. Leukocytosis, fevers, UTI 6. Metabolic encephalopathy 7. H/o GIB (07/13). Eliquis was discontinued at this time. 8. Bacteremia; BC with GPC / bottles. ? contaminant Recommendations Continue metoprolol for rate control Eliquis for stroke prophylaxis. Lasix PRN Ongoing antibiotic therapy, treatment of UTI. Supportive care AL OSORIO APRN Jan 20, 2021 08:32
[2021-01-20] MEDS: LACTOBACILLUS RHAMNOSUS GG 1 CAPSULE. PO SCH ×2 (08:33→21:21)
[2021-01-20] MEDS: NYSTATIN TOPICAL POWDER 15GM BOTTLE. TP SCH ×2 (08:33→21:22)
[2021-01-20] MEDS: EZETIMIBE 10 MG TABLET PO SCH (08:33)
[2021-01-20] MEDS: METOPROLOL SUCC 24HR ER 50 MG TAB.ER.24H. PO SCH (08:33)
[2021-01-20] MEDS: CHOLECALCIFEROL (VITAMIN D3) 1,000 UNIT TABLET PO SCH (08:33)
[2021-01-20] MEDS: ASPIRIN 325 MG TABLET PO SCH (08:33)
--- NOTE | 2021-01-20 09:20 | NUR ---
Called pt Rx per Amna Clemens request to verify Eliquis refill. Rx states they filled and delivered Eliquis to pt home on 01/13/21
[2021-01-20] MEDS: ACETAMINOPHEN 500 MG TABLET PO PRN (21:21)
[2021-01-20] MEDS: diphenhydrAMINE HCL 25 MG CAPSULE PO PRN (21:21)
[2021-01-20] MEDS: ATORVASTATIN CALCIUM 10 MG TABLET. PO SCH (21:21)
--- NOTE | 2021-01-20 23:01 | PN ---
DATE: 01/20/2021 SUBJECTIVE: The patient is sitting comfortably in her chair in no apparent respiratory distress. She is pleasantly confused. On questioning her, she denied any complaint. The nursing staff stated yesterday, it took about 3 people to transfer her from bed to chair, today it took only 1 person. PHYSICAL EXAMINATION: GENERAL: When I examined her, she looked well and was clearly in no apparent respiratory distress. She was pale. No jaundice, cyanosis. No lymphadenopathy, no thyromegaly, no jugular venous distention. No limb edema. VITAL SIGNS: Her heart rate was 90, blood pressure is 147/85, temperature was 97.7, respiratory rate was 14 and oxygen saturation was 94% on room air. HEAD, EYES, EARS, NOSE AND THROAT: Normocephalic, atraumatic. NECK: Supple. HEART: Normal first and second heart sounds. No gallop or murmur. CHEST: Clear to auscultation. No crepitation or rhonchi. ABDOMEN: Distended, soft, nontender. NEUROLOGIC: She is pleasantly confused, but without any obvious lateralizing sign. All other cranial nerves intact. She moves extremities without difficulty. Her intake over the last 24 hours was 450, output was 1150. LABORATORY DATA: Her lab work as of yesterday showed a white cell count 12,000, hemoglobin 11.5, hematocrit 36, MCV 93 and platelet count 220,000. Her chemistry showed a serum sodium of 143, potassium 4.5, chloride 110, bicarbonate 24, anion gap of 9, BUN 28, creatinine 2.5. Estimated GFR was 18 mL per minute. Her glucose 98, calcium was 9.1. Total bilirubin, AST, ALT, alkaline phosphatase were normal. Total protein 6.5, albumin 2.5. Her urine culture has grown more than 100,000 colony forming units per mL of gram-negative rods, identified as Klebsiella pneumoniae. The sensitivity is still pending at the time of this dictation. So far, blood culture has grown gram-positive cocci in clusters in 1 out of 4 bottles, indicating likely that this is a contaminant. ASSESSMENT: 1. Generalized weakness, improving. 2. New onset atrial fibrillation with rapid ventricular response. 3. Urinary tract infection. 4. She also grew gram-positive cocci in 1 out of 4 bottles. 5. Other medical problems include chronic kidney disease, morbid obesity, bilateral osteoarthritis of both knee joints, hypertensive disorder, hyperlipidemia, chronic pain syndrome. PLAN: My plan is to continue with IV antibiotic, continue with diltiazem as well as control the heart rate as well as metoprolol. I added Zyvox with a growth of gram-positive cocci in blood, which is most likely contaminant. Once we have the sensitivity, we will make a decision regarding further treatment. CHRISTIANNE DR: Elena TID: [id number]
[2021-01-21 00:01] VITALS: BP 147/85
[2021-01-21 06:24] LABS: BASO % 0 % (0-3); EOS # 0.5 x10^3/uL (0.0-0.7); EOS % 5 % (0-3); HEMATOCRIT 35.9 % (36.0-47.0); HEMOGLOBIN 11.6 g/dL (12.0-15.5); LYMPH # 1.3 x10^3/uL (1.0-4.8); LYMPH % 13 % (24-48); MEAN CORPUSCULAR HEMOGLOBIN 30 pg (25-35); MEAN CORPUSCULAR HGB CONC 32 g/dL (31-37); MEAN CORPUSCULAR VOLUME 92 fL (79-100); MONO # 0.6 x10^3/uL (0.0-1.1); MONO % 6 % (0-9); NEUT # 7.8 x10^3uL (1.8-7.7); NEUT % 76 % (31-73); PLATELET COUNT 248 x10^3/uL (140-400); RED BLOOD COUNT 3.88 x10^6/uL (3.50-5.40); RED CELL DISTRIBUTION WIDTH 14.4 % (11.5-14.5); WHITE BLOOD COUNT 10.2 x10^3/uL (4.0-11.0)
[2021-01-21 06:36] LABS: CALCIUM 9.3 mg/dL (8.5-10.1); CREATININE 2.4 mg/dL (0.6-1.0); GFR 19.5; POTASSIUM 3.9 mmol/L (3.5-5.1)
[2021-01-21 06:38] VITALS: BP 113/87
[2021-01-21] MEDS: EZETIMIBE 10 MG TABLET PO SCH (08:24)
[2021-01-21] MEDS: LACTOBACILLUS RHAMNOSUS GG 1 CAPSULE. PO SCH ×2 (08:24→19:49)
[2021-01-21] MEDS: ASPIRIN 325 MG TABLET PO SCH (08:24)
[2021-01-21] MEDS: METOPROLOL SUCC 24HR ER 50 MG TAB.ER.24H. PO SCH ×3 (08:24→19:50)
[2021-01-21] MEDS: CHOLECALCIFEROL (VITAMIN D3) 1,000 UNIT TABLET PO SCH (08:24)
--- NOTE | 2021-01-21 08:24 | PDOC ---
CARDIO Progress Notes Date & Time Date of Service DATE: 01/21/21 TIME: 08:22 Time of Evaluation 08:22 Subjective Notes No chest pain, palpitations, SOA. Vitals Vitals Vital Signs Date Time Temp Pulse Resp B/P (MAP) Pulse Ox O2 Delivery O2 Flow Rate FiO2 01/21/21 08:00 Room Air 01/21/21 06:38 97.6 85 18 113/87 (96) 92 01/21/21 00:56 2.0 Weight Weight [ ] Input and Output I.O. Intake and Output 01/21/21 07:00 Intake Total 770 ml Output Total 757 ml Balance 13 ml Intake Oral 120 ml IV Total 650 ml Output Urine Total 757 ml Laboratory Labs Laboratory Tests Test 01/20/21 19:55 01/21/21 05:35 01/21/21 08:01 Glucose (Fingerstick) 95 mg/dL (70-99) 80 mg/dL (70-99) White Blood Count 10.2 x10^3/uL (4.0-11.0) Red Blood Count 3.88 x10^6/uL (3.50-5.40) Hemoglobin 11.6 g/dL (12.0-15.5) Hematocrit 35.9 % (36.0-47.0) Mean Corpuscular Volume 92 fL (79-100) Mean Corpuscular Hemoglobin 30 pg (25-35) Mean Corpuscular Hemoglobin Concent 32 g/dL (31-37) Red Cell Distribution Width 14.4 % (11.5-14.5) Platelet Count 248 x10^3/uL (140-400) Neutrophils (%) (Auto) 76 % (31-73) Lymphocytes (%) (Auto) 13 % (24-48) Monocytes (%) (Auto) 6 % (0-9) Eosinophils (%) (Auto) 5 % (0-3) Basophils (%) (Auto) 0 % (0-3) Neutrophils # (Auto) 7.8 x10^3uL (1.8-7.7) Lymphocytes # (Auto) 1.3 x10^3/uL (1.0-4.8) Monocytes # (Auto) 0.6 x10^3/uL (0.0-1.1) Eosinophils # (Auto) 0.5 x10^3/uL (0.0-0.7) Basophils # (Auto) 0.0 x10^3/uL (0.0-0.2) Sodium Level 140 mmol/L (136-145) Potassium Level 3.9 mmol/L (3.5-5.1) Chloride Level 107 mmol/L (98-107) Carbon Dioxide Level 24 mmol/L (21-32) Anion Gap 9 (6-14) Blood Urea Nitrogen 31 mg/dL (7-20) Creatinine 2.4 mg/dL (0.6-1.0) Estimated GFR (Cockcroft-Gault) 19.5 Glucose Level 87 mg/dL (70-99) Calcium Level 9.3 mg/dL (8.5-10.1) Microbiology Micro Microbiology 01/18/21 Urine Culture - Final, Complete 01/18/21 Antimicrobic Susceptibility - Final, Complete 01/18/21 Blood Culture - Final, Complete Physical Exams HEENT: Neck Supple W Full Motion Chest: Symmetric Lungs: Clear to Auscultation, Other (diminished bases) Heart: irregularly irregular (AFIB) Abdomen: Soft N/T Extremities: Other (1+ bilateral LE edema ) Neurology: alert, follow commands, confused Assessment Assessment 1. Chronic AFIB; presenting with RVR. rate now controlled with resumption of metoprolol 2. Acute on chronic diastolic CHF; appears compensated 3. Hypertension; controlled 4. DAVID on CKD 5. Leukocytosis, fevers, UTI; culture with GNR 6. Metabolic encephalopathy 7. H/o GIB (07/13). Eliquis was discontinued at this time. 8. Bacteremia; BC with GPC 1/4 bottles. ? contaminant Recommendations Continue metoprolol for rate control Eliquis for stroke prophylaxis. Lasix PRN Ongoing antibiotic therapy, treatment of UTI. Supportive care AL OSORIO APRN Jan 21, 2021 08:24
[2021-01-21] MEDS: NYSTATIN TOPICAL POWDER 15GM BOTTLE. TP SCH ×2 (08:25→19:51)
--- NOTE | 2021-01-21 10:06 | NUR ---
am metoprolol dose already given, held new order for bid dose
[2021-01-21 10:55] VITALS: BP 164/80
[2021-01-21] MEDS ORDERED: ACETAMINOPHEN 500 MG TABLET PO PRN (11:00)
[2021-01-21 15:35] VITALS: BP 137/82
[2021-01-21] MEDS ORDERED: CEFDINIR 300 MG CAPSULE PO SCH (18:00)
--- NOTE | 2021-01-21 18:22 | NUR ---
pt very confused today, worsening this afternoon and evening. pt convinced that the other unit of the hospital is a building full of tires. pt constantly up and down on bedside, in bed, wanting up to chair. pt very anxious. pt to go to [facility] tomorrow.
[2021-01-21] MEDS: ACETAMINOPHEN 500 MG TABLET PO PRN (19:49)
[2021-01-21] MEDS: ATORVASTATIN CALCIUM 10 MG TABLET. PO SCH (19:49)
[2021-01-21] MEDS: diphenhydrAMINE HCL 25 MG CAPSULE PO PRN (19:49)
--- NOTE | 2021-01-21 20:12 | PN ---
DATE: 01/21/2021 ATTENDING PHYSICIAN: Dr. Vigil. SUBJECTIVE: The patient remains very weak and confused. She said she wanted to go home instead of the facility. OBJECTIVE FINDINGS: VITAL SIGNS: Blood pressure this morning is 113/87, pulse is still ranging between 100 and 120, irregularly irregular, oxygen saturation 92% on room air. She is afebrile. HEENT: Head is without trauma. Pupils are reactive. Sclerae nonicteric. Oropharynx clear. NECK: Supple. LUNGS: Clear. CARDIOVASCULAR: Showed distant heart tones, tachycardic rhythm, irregularly irregular. Peripheral pulses are palpable and full. ABDOMEN: Soft, obese, protuberant. EXTREMITIES: Show trace edema. NEUROLOGIC: Function focally intact. Speech is fluent. LABORATORY DATA: Cultures of the urine grew Klebsiella pneumoniae, which was pansensitive to antibiotics. Currently, she is on Rocephin and Zyvox. Blood cultures is precisely a contaminant. ASSESSMENT: 1. A 80-year-old female with urinary tract infection. 2. Atrial fibrillation with rapid ventricular rate. 3. Compliance of medications. I had a long talk with the patient. I do not think she is getting her medicines and therefore not taking her metoprolol. PLAN: 1. I will increase her metoprolol to 50 mg b.i.d. to control her ventricular rate. 2. We can stop the Zyvox. 3. Continue Rocephin. 4. Other home meds reviewed. 5. Tentative plans and we persuaded her to go to [facility] tomorrow. ARIEL/MILI/ROSLYN DR: Rosi TID: [id number]
[2021-01-21 21:01] VITALS: BP 163/97
[2021-01-21 23:12] VITALS: BP 146/79
[2021-01-22 06:16] VITALS: BP 161/96
--- NOTE | 2021-01-22 08:46 | PDOC ---
CARDIO Progress Notes Date & Time Date of Service DATE: 01/22/21 TIME: 08:41 Time of Evaluation 08:41 Subjective Notes No chest pain, palpitations, shortness of breath Vitals Vitals Vital Signs Date Time Temp Pulse Resp B/P (MAP) Pulse Ox O2 Delivery O2 Flow Rate FiO2 01/22/21 06:16 97.9 89 20 161/96 (117) 95 Room Air 01/21/21 23:12 2.0 Weight Weight [ ] Input and Output I.O. Intake and Output0 01/22/21 07:00 Intake Total 900 ml Balance 900 ml Intake Oral 600 ml IV Total 300 ml # Voids 5 Laboratory Labs Laboratory Tests Test 01/20/21 19:55 01/21/21 05:35 01/21/21 08:01 01/21/21 20:23 Glucose (Fingerstick) 95 mg/dL (70-99) 80 mg/dL (70-99) 102 mg/dL (70-99) White Blood Count 10.2 x10^3/uL (4.0-11.0) Red Blood Count 3.88 x10^6/uL (3.50-5.40) Hemoglobin 11.6 g/dL (12.0-15.5) Hematocrit 35.9 % (36.0-47.0) Mean Corpuscular Volume 92 fL (79-100) Mean Corpuscular Hemoglobin 30 pg (25-35) Mean Corpuscular Hemoglobin Concent 32 g/dL (31-37) Red Cell Distribution Width 14.4 % (11.5-14.5) Platelet Count 248 x10^3/uL (140-400) Neutrophils (%) (Auto) 76 % (31-73) Lymphocytes (%) (Auto) 13 % (24-48) Monocytes (%) (Auto) 6 % (0-9) Eosinophils (%) (Auto) 5 % (0-3) Basophils (%) (Auto) 0 % (0-3) Neutrophils # (Auto) 7.8 x10^3uL (1.8-7.7) Lymphocytes # (Auto) 1.3 x10^3/uL (1.0-4.8) Monocytes # (Auto) 0.6 x10^3/uL (0.0-1.1) Eosinophils # (Auto) 0.5 x10^3/uL (0.0-0.7) Basophils # (Auto) 0.0 x10^3/uL (0.0-0.2) Sodium Level 140 mmol/L (136-145) Potassium Level 3.9 mmol/L (3.5-5.1) Chloride Level 107 mmol/L (98-107) Carbon Dioxide Level 24 mmol/L (21-32) Anion Gap 9 (6-14) Blood Urea Nitrogen 31 mg/dL (7-20) Creatinine 2.4 mg/dL (0.6-1.0) Estimated GFR (Cockcroft-Gault) 19.5 Glucose Level 87 mg/dL (70-99) Calcium Level 9.3 mg/dL (8.5-10.1) Test 01/22/21 07:42 Glucose (Fingerstick) 75 mg/dL (70-99) Microbiology Micro Microbiology 01/18/21 Urine Culture - Final, Complete 01/18/21 Antimicrobic Susceptibility - Final, Complete 01/18/21 Blood Culture - Final, Complete Physical Exams HEENT: Neck Supple W Full Motion Chest: Symmetric Lungs: Clear to Auscultation, Other (diminished bases) Heart: irregularly irregular (AFIB rate controlled ) Abdomen: Soft N/T Extremities: Other (1+ bilateral LE edema ) Neurology: alert, follow commands, confused Assessment Assessment 1. Chronic AFIB; presenting with RVR. rate now controlled with increased metoprolol dosing 2. Acute on chronic diastolic CHF; appears compensated 3. Hypertension; controlled 4. DAVID on CKD; improved 5. Leukocytosis, fevers, UTI; culture with GNR 6. Metabolic encephalopathy 7. H/o GIB; verified with pharmacy Eliquis has been resumed Recommendations Continue metoprolol for rate control Eliquis for stroke prophylaxis. Ongoing antibiotic therapy, treatment of UTI. Supportive care Okay to discharge to rehab from a CV standpoint AL OSORIO APRN Jan 22, 2021 08:46
[2021-01-22] MEDS: CHOLECALCIFEROL (VITAMIN D3) 1,000 UNIT TABLET PO SCH (08:53)
[2021-01-22] MEDS: LACTOBACILLUS RHAMNOSUS GG 1 CAPSULE. PO SCH (08:53)
[2021-01-22] MEDS: ASPIRIN 325 MG TABLET PO SCH (08:53)
[2021-01-22] MEDS: EZETIMIBE 10 MG TABLET PO SCH (08:54)
[2021-01-22] MEDS: METOPROLOL SUCC 24HR ER 50 MG TAB.ER.24H. PO SCH (08:55)
--- NOTE | 2021-01-22 09:13 | DS ---
DATE OF DISCHARGE: 01/22/2021 ATTENDING PHYSICIAN: Dr. Vigil/Dr. Frye. FINAL DISCHARGE DIAGNOSES: 1. Urinary tract infection, Klebsiella pneumoniae, pansensitive. 2. Atrial fibrillation with rapid ventricular rate, controlled. 3. Compliance of medication. 4. Generalized debilitation. 5. Generalized weakness. 6. Chronic anticoagulation. 7. Essential hypertension. 8. Chronic kidney disease, stage IV. HISTORY OF PRESENT ILLNESS: The patient is a 80-year-old female. She has been living at home. Her care for her. She is in decline. She presented with generalized weakness, atrial fibrillation with rapid ventricular rate in the presence of urinary tract infection. PHYSICAL EXAMINATION: Please see the dictated note. PERTINENT LABORATORY AND X-RAY STUDIES: The microbiology lab grew out Klebsiella pneumoniae, which is pansensitive to all the antibiotics on the panel. Blood cultures were negative at 72 hours. Her admission hemoglobin was 12.7 g/dL, white count 15,000, repeated was down to 10,200. Electrolytes were monitored. She has some chronic renal insufficiency with a baseline creatinine of 2.4 mg/dL. Admission creatinine had been 2.8, it came down to 2.4 mg/dL, which is her baseline. The patient was admitted. She was started on intravenous antibiotics. When the sensitivity came out, we stopped the Zyvox and continued her Rocephin. Cardiology Service consulted for her management of atrial fibrillation with rapid ventricular rate. We continued her apixaban anticoagulation, beta blockade was increased. Therefore, on the fifth hospital day, she was reluctant at first, but she agreed to go to subacute rehab at the [facility]. Her discharge meds include 5 more days of cephalexin 500 mg p.o. t.i.d., then stop. She will continue her Eliquis 5 mg b.i.d., Lipitor 10 mg daily, vitamin D3, Zetia, irbesartan 300 mg daily, metoprolol 50 mg b.i.d. and Tylenol p.r.n. She is a FULL CODE. Her prognosis is guarded. She was discharged from our hospital in stable condition with explicit written and followup care. ARIEL/LIGIA DR: Rosi TID: [id number] CC: NOLVIA PIZANO MD
[2021-01-22 10:53] VITALS: BP 150/92
--- NOTE | 2021-01-22 15:25 | NUR ---
discharge note pt discharged at 1525 via transport to [facility] via wheel chair pt given written and verbal instructions with verbal statement of understanding received
== END 2021-01-22 15:57 | DRG 871 ==
LOC: ER 12:46 → ICU 19:34 → 1 SOUTH 01-20 16:56
PROVIDERS: ADMIT Internal Medicine; ATTEND Internal Medicine
DX: A41.9 Sepsis, unspecified organism (principal); I50.33 Acute on chronic diastolic (congestive) heart failure; G93.41 Metabolic encephalopathy; I13.0 Hypertensive heart and chronic kidney disease with heart failure and stage 1 through stage 4 chronic kidney disease, or unspecified chronic kidney disease; I48.20 Chronic atrial fibrillation, unspecified; N39.0 Urinary tract infection, site not specified; N17.9 Acute kidney failure, unspecified; R78.81 Bacteremia; N18.4 Chronic kidney disease, stage 4 (severe); B96.1 Klebsiella pneumoniae [K. pneumoniae] as the cause of diseases classified elsewhere; E66.01 Morbid (severe) obesity due to excess calories; E78.00 Pure hypercholesterolemia, unspecified; E78.5 Hyperlipidemia, unspecified; G89.4 Chronic pain syndrome; I25.10 Atherosclerotic heart disease of native coronary artery without angina pectoris; M19.90 Unspecified osteoarthritis, unspecified site; R09.02 Hypoxemia; Z79.01 Long term (current) use of anticoagulants; Z82.49 Family history of ischemic heart disease and other diseases of the circulatory system; F41.9 Anxiety disorder, unspecified; Z20.822 Contact with and (suspected) exposure to COVID-19
CPT/HCPCS: 36415; 71045; 80048; 80053; 81001; 82947; 83605; 83880; 84484; 85007; 85025; 87040; 87076; 87077; 87086; 87186; 87205; 87426; 90471; 90686; 93005; 96361; 96365; 96375; 96376; J0696; J2020; J2270; J2405; J3490; Q0163; U0003; 97110; 97116; 97530; 97535; 99285-25; J7030

== ENCOUNTER 2021-03-17 10:32 | Inpatient (IN) | payer MEDICARE, BC ==
[~2021-03-17] VITALS: Ht 162.6 cm; Wt 91.4 kg
[~2021-03-17 10:32] MED LIST changes: +APIX5TAB3 PO; +NYST15PO9 TP
[2021-03-17] MEDS ORDERED: IV RINGERS SOLUTION,LACTATED 1,000 ML IV ONE (11:00)
--- NOTE | 2021-03-17 11:01 | EKG ---
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
--- NOTE | 2021-03-17 11:07 | PHYS DOC ---
Past History Past Medical History: A-Fib, High Cholesterol, Hypertension (ROSALINDA HALL) Past Surgical History: No Surgical History (ROSALINDA HALL) Alcohol Use: None (ROSALINDA HALL) General Adult EDM: Chief Complaint: ALTERED MENTAL STATUS HPI: HPI: Patient is a 80 year old female who presents with reported episodes of confusion yesterday. Patient is a poor historian, as she is "forgetful." Patient is currently on hospice care, and was instructed by her physician to visit the emergency department. Someone close to the patient, either a neighbor or her c aregiver, reported increased confusion yesterday. Patient denies that she felt confused at all yesterday, but reports that her , whom she lives with was confused. Patient denies significant past medical history, but reports she takes "lots of medicine," but she is unsure for what. She has no complaints today including weakness, fever, headache, vision changes, chest pain, palpitations, shortness of breath, cough, abdominal pain, NVD, dysuria, hematuria or any other pain. Patient has a history of frequent falls, but she denies having fallen recently or feeling weak. (ROSALINDA HALL) Review of Systems: Review of Systems: Constitutional: See HPI Eyes: See HPI HENT: Denies nasal congestion or sore throat Respiratory: See HPI Cardiovascular: See HPI GI: See HPI : See HPI Musculoskeletal: Denies back pain or joint pain Integument: Denies rash or other skin lesions Neurologic: See HPI Psychiatric: Denies depression or anxiety (ROSALINDA HALL) Current Medications: Current Meds: Current Medications Medications (Trade) Dose Ordered Sig/Jacqueline Start Time Stop Time Status Last Admin Dose Admin Lactated Ringer's 1,000 ml @ 1,000 mls/hr 1X ONCE 03/17/21 11:00 03/17/21 11:59 UNV (ROSALINDA HALL) Allergies: Allergies: Allergies Coded Allergies Type Severity Reaction Last Updated Verified No Known Allergies Allergy Unknown 07/02/20 Yes (ROSALINDA HALL) Physical Exam: PE: Constitutional: Well developed, well nourished, no acute distress, non-toxic appearance. HENT: Normocephalic, atraumatic, bilateral external ears normal, oropharynx moist, no oral exudates, nose normal. Eyes: PERRLA, EOMI, conjunctiva normal, no discharge. Neck: Normal range of motion, no tenderness, supple, no stridor. Cardiovascular: Elevated heart rate with irregularly irregular rhythm, no obvious murmur appreciated. Lungs & Thorax: Bilateral breath sounds clear to auscultation, but diminished diffusely. Abdomen: Bowel sounds normal, soft, no tenderness, no masses, no pulsatile masses. Skin: Intertriginous folds in the low abdomen, groin, beneath breasts with erythematous, moist rash and odor consistent with yeast. Stasis rash noted on bilateral lower legs without pitting edema. Skin is dry and flaky diffusely. [place], loose stool appreciated in the gluteal fold and surrounding area. Back: No tenderness, no CVA tenderness. Extremities: No tenderness, no cyanosis, no clubbing, ROM intact. Neurologic: Alert and oriented x3/4 - not oriented to situation, motor function grossly intact, sensory function grossly intact, no focal deficits noted. (ROSALINDA HALL) Current Patient Data: Vital Signs: Vital Signs Date Time Temp Pulse Resp B/P (MAP) Pulse Ox O2 Delivery O2 Flow Rate FiO2 03/17/21 10:35 97.5 110 28 133/98 (110) 96 (ROSALINDA HALL) EKG: EKG: EKG Interpreted by Dr. Palacio at 1057: Irregularly irregular rhythm with no discernible P waves. Rate [address]-T wave changes. (ROSALINDA HALL) Radiology/Procedures: Radiology/Procedures: PROCEDURE: PORTABLE CHEST 1V EXAM: XR CHEST 1V 03/17/2021 11:05 AM CLINICAL INDICATION: Altered mental status, tachycardia COMPARISON: Chest radiograph 01/18/2021 TECHNIQUE: AP upright view of the chest FINDINGS: The patient is tilted to the left. The heart is normal in size. Lungs are mildly hypoexpanded. There are new opacities in the right perihilar region with a possible 1.5 cm nodule. A few streaky opacities in the left lung are likely atelectasis. No pleural effusion or pneumothorax. There is severe left glenohumeral osteoarthrosis. IMPRESSION: New opacities in the right perihilar region with a possible 1.5 cm nodule. Recommend correlation with CT. Electronically signed by: Piper Curry MD (03/17/2021 11:19 AM) [id number] (ROSALINDA HALL) Heart Score: C/O Chest Pain: No (ROSALINDA HALL) Course & Med Decision Making: Course & Med Decision Making Pertinent Labs and Imaging studies reviewed. (See chart for details) Patient is currently on hospice care and is reportedly declining, so her physician sent her to the ER possibly for IV fluid rehydration. Work-up today will include blood work, urinalysis, EKG, chest x-ray, IV fluids. Patient is slightly agitated and shouts for help while in the department. Per her neighbor and caregiver, who was present at bedside for period of time, patient gets aggressive at night. Her sleeps on the floor next to her or in the living room secondary to her agitation. She repeats that she would like to go home. Patient also is uncomfortable in almost any position secondary to her sacral ulcer. CXR shows new opacities in R hilar region. CT chest ordered. Patient will be admitted for further evaluation and possible halfway placement. Patient history consistent with sundowning dementia, she also has extensive fungal infection of the skin as well as a UTI. At this point, she is unable to care for herself and her is not reported to be in good health status to care for her either. Patient admitted to Dr. Vigil. (ROSALINDA HALL) Dragon Disclaimer: Dragdunia Disclaimer: This electronic medical record was generated, in whole or in part, using a voice recognition dictation system. (ROSALINDA HALL) Departure Departure: Impression: Primary Impression: Dementia with behavioral disturbance Qualified Codes: F03.91 - Unspecified dementia with behavioral disturbance Additional Impressions: Nodule of middle lobe of right lung UTI (urinary tract infection) Qualified Codes: N30.00 - Acute cystitis without hematuria Fungal skin infection Disposition: ADMITTED INPATIENT Admitting Physician: Desiree Vigil (ROSALINDA HALL) Condition: GUARDED Referrals: NOLVIA PIZANO MD (PCP) Attending Signature Attending Signature I have reviewed the PA/AUTOMATED EQUIPMENT ENGINEER TECHNICIAN's note and plan of care. I was available for consultation as needed during the patient's visit in the emergency department. I agree with the clinical impression, plan, and disposition. (PALACIO,LILY R DO) ROSALINDA HALL Mar 17, 2021 11:07 LILY PALACIO DO Mar 17, 2021 22:07
[2021-03-17 11:19] LABS: BASO # 0.1 x10^3/uL (0.0-0.2); BASO % 1 % (0-3); EOS # 0.2 x10^3/uL (0.0-0.7); EOS % 2 % (0-3); HEMATOCRIT 39.7 % (36.0-47.0); HEMOGLOBIN 12.8 g/dL (12.0-15.5); LYMPH # 1.1 x10^3/uL (1.0-4.8); LYMPH % 10 % (24-48); MEAN CORPUSCULAR HEMOGLOBIN 30 pg (25-35); MEAN CORPUSCULAR HGB CONC 32 g/dL (31-37); MEAN CORPUSCULAR VOLUME 94 fL (79-100); MONO % 10 % (0-9); NEUT # 8.1 x10^3uL (1.8-7.7); NEUT % 78 % (31-73); PLATELET COUNT 373 x10^3/uL (140-400); RED BLOOD COUNT 4.24 x10^6/uL (3.50-5.40); RED CELL DISTRIBUTION WIDTH 15.9 % (11.5-14.5); WHITE BLOOD COUNT 10.5 x10^3/uL (4.0-11.0)
--- NOTE | 2021-03-17 11:22 | RAD ---
EXAM: XR CHEST 1V 03/17/2021 11:05 AM CLINICAL INDICATION: Altered mental status, tachycardia COMPARISON: Chest radiograph 01/18/2021 TECHNIQUE: AP upright view of the chest FINDINGS: The patient is tilted to the left. The heart is normal in size. Lungs are mildly hypoexpan ded. There are new opacities in the right perihilar region with a possible 1.5 cm nodule. A few strea ky opacities in the left lung are likely atelectasis. No pleural effusion or pneumothorax. There is s evere left glenohumeral osteoarthrosis. IMPRESSION: New opacities in the right perihilar region with a possible 1.5 cm nodule. Recommend cor relation with CT. Electronically signed by: Piper Curry MD (03/17/2021 11:19 AM) [id number]
[2021-03-17 11:24] LABS: CALCIUM 9.1 mg/dL (8.5-10.1); CREATININE 3.2 mg/dL (0.6-1.0); POTASSIUM 4.9 mmol/L (3.5-5.1)
[2021-03-17 11:30] LABS: ALBUMIN 2.6 g/dL (3.4-5.0); ALBUMIN/GLOBULIN RATIO 0.5 (1.0-1.7); MAGNESIUM 2.5 mg/dL (1.8-2.4); TOTAL BILIRUBIN 0.8 mg/dL (0.2-1.0); TOTAL PROTEIN 7.4 g/dL (6.4-8.2)
[2021-03-17] MEDS ORDERED: METOPROLOL TARTRATE 5 MG/5 ML VIAL. IV ONE ×2 (12:00→15:45)
[2021-03-17] MEDS ORDERED: NYSTATIN TOPICAL POWDER 15GM BOTTLE. TP ONE (15:00)
[2021-03-17] MEDS ORDERED: cefTRIAXone SODIUM 1 GM VIAL ONE (15:21)
[2021-03-17] MEDS ORDERED: IV NORMAL SALINE 50ML 50 ML ONE (15:21)
[2021-03-17] MEDS: MORPHINE SULFATE 2 MG/ML DISP.SYRIN. IVP PRN ×2 (15:23→19:53)
[2021-03-17 15:43] LABS: BACTERIA,URINE MOD /HPF (0-FEW); BILIRUBIN,URINE NEG (NEG); CLARITY,URINE CLEAR; COLOR,URINE YELLOW; GLUCOSE,URINE NEG (NEG); NITRITE,URINE NEG (NEG); SQUAMOUS EPITHELIAL CELL,UR MOD /LPF; WBC,URINE 20-40 /HPF (0-4)
--- NOTE | 2021-03-17 17:15 | NUR ---
Nursing note: Pt arrived on gurney from ED. Pt alert and oriented to person and place. Orientation to room amenities and unit routines provided. Vital signs stable. Pt refused dinner and snacks. IV fluid started per MD's order. Unable to contact her and her pharmacy for home medications. Will follow up tomorrow.
[2021-03-17 17:26] VITALS: BP 116/79
[2021-03-17] MEDS: IV NORMAL SALINE 1,000ML 1,000 ML IV SCH (17:41)
[2021-03-17] MEDS: LACTOBACILLUS RHAMNOSUS GG 1 CAPSULE. PO SCH (19:53)
[2021-03-17 23:04] VITALS: BP 135/76
[2021-03-18 05:10] VITALS: BP 120/79
[2021-03-18] MEDS: IV NORMAL SALINE 1,000ML 1,000 ML IV SCH (08:11)
[2021-03-18] MEDS: LACTOBACILLUS RHAMNOSUS GG 1 CAPSULE. PO SCH ×2 (08:11→20:57)
[2021-03-18] MEDS: NYSTATIN TOPICAL POWDER 15GM BOTTLE. TP SCH (08:11)
--- NOTE | 2021-03-18 09:47 | HP ---
DATE OF SERVICE: 03/18/2021 ADMIT DATE: 03/17/2021 ATTENDING PHYSICIAN: Dr. Frye. CHIEF COMPLAINT: Altered mentation. HISTORY OF PRESENT ILLNESS: The patient is a 80-year-old female well known to us from previous admission. She is quite demented. She lives with her who is equally demented. A neighbor next door has power of trial attorney. He was the one that called EMS and brought into the Emergency Room. The admission diagnosis was confusion. By the time I saw her the next day, she was sitting up in bed. She was oxygenating well. Her vital signs were stable. She has no idea why she is here. She states that she is forgetful and she answers questions in forms of circular reasoning and tangential thought process. In addition, she had a positive swab for coronavirus, but she is totally asymptomatic. She has no fevers and her oxygen saturations are adequate without any supplemental oxygen, that is an incidental finding. PAST MEDICAL HISTORY: Significant for paroxysmal atrial fibrillation, hyperlipidemia and essential hypertension. CURRENT MEDICATIONS: Include the following: She was scheduled to take Eliquis 5 mg b.i.d., Lipitor, cholecalciferol, Zetia, irbesartan, metoprolol, nystatin, and Tylenol. ALLERGIES: She has no known drug allergies. SOCIAL HISTORY: She is nonsmoker and nondrinker. FAMILY HISTORY: Unobtainable due to the patient's confusion. REVIEW OF SYSTEMS: Unobtainable. PHYSICAL EXAMINATION: GENERAL: When I saw her, this is a pleasant, confused, elderly female who is alert and sitting at the bedside. She ate her breakfast independently. VITAL SIGNS: Her initial vital signs showed a blood pressure 135/76, pulse is 103, irregularly irregular. Oxygen saturation 92% on room air. She was afebrile with a temperature 97.8 degrees Fahrenheit. HEENT: Head is without trauma. Pupils are reactive. Sclerae nonicteric. Oropharynx is clear. NECK: Supple, no bruits identified. LUNGS: Clear with good breath sounds. CARDIOVASCULAR: Showed distant heart tones. Irregularly irregular rhythm. No gallops. ABDOMEN: Obese, protuberant. No organomegaly. Bowel sounds normoactive. EXTREMITIES: Show trace pedal edema, nonpitting. NEUROLOGIC FUNCTION: The patient's speech is fluent. She is confused and not aware of place. SKIN: Warm and dry. PERTINENT LABORATORY STUDIES: In the ED, her hemoglobin was normal at 12.8 g/dL with a white count of 10,500. Sodium was 139 mEq, creatinine is 3.2 mg percent, BUN is 35. ASSESSMENT: 1. A 80-year-old female with altered mentation. 2. Chronic renal failure, stage 5. 3. Essential hypertension. 4. Dementia, profound. 5. Inability to care for self. 6. Hyperlipidemia. PLAN: 1. Admission to the hospital. 2. 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 3. Gentle IV hydration. 4. She can follow electrolytes as an outpatient. 5. I notice a positive serology, but she is totally asymptomatic and does not need treatment for coronavirus at this time. AMANDA DR: Rosi TID: [id number]
[2021-03-18 10:50] VITALS: BP 135/89
[2021-03-18] MEDS ORDERED: ASPI325T8 PO (13:30)
[2021-03-18] MEDS ORDERED: CITA20TA6 PO (13:30)
[2021-03-18] MEDS ORDERED: DILT120C99 PO (13:30)
[2021-03-18] MEDS ORDERED: BACI1CAP6 PO (13:30)
[2021-03-18] MEDS ORDERED: BUME2TAB3 PO (13:30)
[2021-03-18] MEDS ORDERED: ACETAMINOPHEN 500 MG TABLET PO PRN (14:15)
--- NOTE | 2021-03-18 15:27 | NUR ---
Wound/Ostomy Care Wound Type/Assessment: Wound care consult for buttock wound. Pt has stage III PU to right buttock. Cleansed, measured and redressed wound. Pt is not incontinent so dressing utilized. Pt coccyx area is red and excoriated like she has been scratching it. Lotion recommended to this area. Treatment Recommendations/Plan: Right buttock- cleanse wound, apply hydrocolloid (exuderm), cover with foam, change every 2-3 days and PRN. Apply lotion to coccyx area daily Education provided: WC POC and PU prevention Offloading surface/device: pt is self turn, recommend turning every 2 hours, pt will need reinforcement of teaching d/t mental status Recommended Referrals/Tests: na Discharge Recommendations for dressings: see above
[2021-03-18 16:18] VITALS: BP 121/78
[2021-03-18 18:56] VITALS: BP 151/87
[2021-03-18] MEDS: APIXABAN 5 MG TABLET. PO SCH (20:57)
[2021-03-18] MEDS: ATORVASTATIN CALCIUM 10 MG TABLET. PO SCH (20:57)
[2021-03-18] MEDS: METOPROLOL SUCC 24HR ER 50 MG TAB.ER.24H. PO SCH (20:57)
[2021-03-19 05:00] VITALS: BP 146/88
[2021-03-19] MEDS: ASPIRIN 325 MG TABLET PO SCH (08:19)
[2021-03-19] MEDS: BUMETANIDE 1 MG TABLET PO SCH (08:20)
[2021-03-19] MEDS: CITALOPRAM 20 MG TABLET. PO SCH (08:20)
[2021-03-19] MEDS: METOPROLOL SUCC 24HR ER 50 MG TAB.ER.24H. PO SCH ×2 (08:20→19:45)
[2021-03-19] MEDS: LACTOBACILLUS RHAMNOSUS GG 1 CAPSULE. PO SCH ×2 (08:20→19:44)
[2021-03-19] MEDS: CHOLECALCIFEROL (VITAMIN D3) 1,000 UNIT TABLET PO SCH (08:20)
[2021-03-19] MEDS: APIXABAN 5 MG TABLET. PO SCH ×2 (08:20→19:44)
[2021-03-19] MEDS: NYSTATIN TOPICAL POWDER 15GM BOTTLE. TP SCH (08:22)
--- NOTE | 2021-03-19 08:45 | PN ---
DATE: 03/19/2021 ATTENDING PHYSICIAN: Dr. Frye. SUBJECTIVE: The patient is alert. She has no complaints. She is not in any visible distress. She is pleasantly confused. She has no idea why she is here and for what reason. OBJECTIVE FINDINGS: VITAL SIGNS: Blood pressure this morning is 148/88 mmHg, her pulse is between 60-90, it is irregularly irregular. She is afebrile and oxygen saturation 92% on room air. HEENT: Head is without trauma. Pupils are reactive. Sclerae nonicteric. Oropharynx clear. NECK: Supple, no bruits. LUNGS: Good breath sounds. CARDIOVASCULAR: Showed regular heart tones. No gallop. ABDOMEN: Soft. EXTREMITIES: Show trace edema. NEUROLOGIC: Focally intact. Speech is fluent. She remains very confused. ASSESSMENT: 1. A 80-year-old female with altered mentation, improved. 2. Chronic kidney disease stage V. Creatinine is at baseline. 3. Essential hypertension. 4. Profound dementia. 5. Inability to care for herself. 6. Hyperlipidemia. 7. Asymptomatic COVID exposure. PLAN: 1. Continue COVID precautions. 2. Diet as tolerated. 3. We were working on jail placement since there is no one to take care of her. The power of trade mark attorney appears to be next door neighbor. ARIEL/KURTIS/BRYCE DR: ARIEL/rekha TID: [id number]
[2021-03-19 10:23] VITALS: BP 143/73
[2021-03-19 15:12] VITALS: BP 120/82
--- NOTE | 2021-03-19 16:47 | NUR ---
PT RESTLESS TODAY. INCONTINENT MULTIPLE TIMES. TRYING TO GET UP ON HER OWN. BED ALARM AND CHAIR ALARM UTILIZED. PT UNDRESSED HERSELF, SAYING IT IS SUMMER. PT STATES SHE IS GOING TO BED, BUT IS ALREADY IN BED. ATIVAN GIVEN ONCE, MEDICATION DID NOT SEEM TO BE EFFECTIVE. PT ABLE TO WALK TO THE BATHROOM, STILL STAND-BY ASSIST UNTIL SEEN BY PT/OT.
[2021-03-19 19:05] VITALS: BP 137/87
[2021-03-19] MEDS: ATORVASTATIN CALCIUM 10 MG TABLET. PO SCH (19:44)
[2021-03-20 04:44] VITALS: BP 127/79
--- NOTE | 2021-03-20 05:40 | NUR ---
Pt has been taking off her brief and taking all of her clothes off. Pt is now in a onesie from [facility].
[2021-03-20] MEDS: ASPIRIN 325 MG TABLET PO SCH (07:59)
[2021-03-20] MEDS: CHOLECALCIFEROL (VITAMIN D3) 1,000 UNIT TABLET PO SCH (07:59)
[2021-03-20] MEDS: APIXABAN 5 MG TABLET. PO SCH ×2 (08:00→21:36)
[2021-03-20] MEDS: LACTOBACILLUS RHAMNOSUS GG 1 CAPSULE. PO SCH ×2 (08:00→21:35)
[2021-03-20] MEDS: BUMETANIDE 1 MG TABLET PO SCH (08:01)
[2021-03-20] MEDS: NYSTATIN TOPICAL POWDER 15GM BOTTLE. TP SCH (08:01)
[2021-03-20] MEDS: METOPROLOL SUCC 24HR ER 50 MG TAB.ER.24H. PO SCH ×2 (08:01→21:36)
[2021-03-20] MEDS: CITALOPRAM 20 MG TABLET. PO SCH (08:01)
[2021-03-20 11:05] VITALS: BP 124/78
--- NOTE | 2021-03-20 12:51 | PN ---
DATE: 03/20/2021 ATTENDING PHYSICIAN: Dr. Frye. SUBJECTIVE: She is confused. She is at the bedside. There is no apparent distress. She ____ her water. She thinks she is going home. She has very poor memory and insight. OBJECTIVE FINDINGS: VITAL SIGNS: Blood pressure this morning is 121/79, pulse is 82 and regular, oxygen saturation 93% on room air. She is afebrile. HEENT: Head is without trauma. Pupils are reactive. Sclerae nonicteric. The oropharynx is clear. NECK: Supple, no bruits identified. ABDOMEN: Soft. EXTREMITIES: Without edema. NEUROLOGIC: Focally intact. PERTINENT LABORATORY DATA: Urine culture shows Enterococcus faecalis, which is a contaminant from a urine mixed with stool. Therefore, she is not symptomatic. I will stop her antibiotics. ASSESSMENT: 1. A 80-year-old female with altered mentation, improved. 2. Profound dementia. 3. Chronic kidney disease, stage V. 4. Essential hypertension. 5. Supposed diagnosis of urinary tract infection, but this is a contaminant. PLAN: 1. Diet as tolerated. 2. I shall discontinue her antibiotics, as she does not need it. 3. We are awaiting placement. 4. She has a positive COVID test without symptoms at this time. The detention will not be able to accept her until next week. ERLIN/SILVIO DR: ARIEL/rekha TID: [id number]
[2021-03-20 15:25] VITALS: BP 121/81
[2021-03-20 20:08] VITALS: BP 138/84
[2021-03-20] MEDS: ATORVASTATIN CALCIUM 10 MG TABLET. PO SCH (21:36)
[2021-03-20 23:25] VITALS: BP 116/80
[2021-03-21 06:49] VITALS: BP 108/75
[2021-03-21] MEDS: LACTOBACILLUS RHAMNOSUS GG 1 CAPSULE. PO SCH ×2 (08:34→22:11)
[2021-03-21] MEDS: CITALOPRAM 20 MG TABLET. PO SCH (08:34)
[2021-03-21] MEDS: ASPIRIN 325 MG TABLET PO SCH (08:34)
[2021-03-21] MEDS: BUMETANIDE 1 MG TABLET PO SCH (08:34)
[2021-03-21] MEDS: APIXABAN 5 MG TABLET. PO SCH ×2 (08:35→22:11)
[2021-03-21] MEDS: CHOLECALCIFEROL (VITAMIN D3) 1,000 UNIT TABLET PO SCH (08:36)
[2021-03-21] MEDS: NYSTATIN TOPICAL POWDER 15GM BOTTLE. TP SCH (08:37)
[2021-03-21] MEDS: METOPROLOL SUCC 24HR ER 50 MG TAB.ER.24H. PO SCH ×2 (09:00→22:11)
[2021-03-21 10:00] VITALS: BP 117/76
--- NOTE | 2021-03-21 15:42 | PN ---
DATE: 03/21/2021 ATTENDING PHYSICIAN: Dr. Frye. SUBJECTIVE: No new complaints. She is pleasant this morning, very confused, but she is not agitated. OBJECTIVE FINDINGS: VITAL SIGNS: She is afebrile. Blood pressure is 108/75 mmHg, pulse is 60 and regular. Her oxygen saturation is 97% on room air. HEENT: Head is without trauma. Pupils are reactive. Sclerae nonicteric. Oropharynx clear. LUNGS: Entirely clear to auscultation. CARDIOVASCULAR: Showed regular heart tones. ABDOMEN: Soft. EXTREMITIES: Without edema. ASSESSMENT: 1. A 80-year-old female with altered mentation, resolved. 2. Profound dementia with inability to care for self. 3. Chronic kidney disease stage 5, which is baseline. 4. Essential hypertension. 5. Urinary tract infection ruled out. The cultures grew back the pathogen as a contaminant. PLAN: 1. Diet as tolerated. 2. We are awaiting placement for first part of Tuesday. She has been accepted, but they are withholding transfer because of her COVID status. 3. She has asymptomatic COVID exposure without symptoms whatsoever. ESTEE/SILVIO DR: ARIEL/rekha TID: [id number]
[2021-03-21 16:00] VITALS: BP 108/64
[2021-03-21 20:04] VITALS: BP 146/75
[2021-03-21] MEDS: ATORVASTATIN CALCIUM 10 MG TABLET. PO SCH (22:11)
[2021-03-21 23:52] VITALS: BP 128/80
[2021-03-22 05:57] VITALS: BP 129/74
[2021-03-22] MEDS: CITALOPRAM 20 MG TABLET. PO SCH (07:56)
[2021-03-22] MEDS: LACTOBACILLUS RHAMNOSUS GG 1 CAPSULE. PO SCH ×2 (07:56→21:05)
[2021-03-22] MEDS: CHOLECALCIFEROL (VITAMIN D3) 1,000 UNIT TABLET PO SCH (07:56)
[2021-03-22] MEDS: APIXABAN 5 MG TABLET. PO SCH ×2 (07:56→21:05)
[2021-03-22] MEDS: BUMETANIDE 1 MG TABLET PO SCH (07:56)
[2021-03-22] MEDS: ASPIRIN 325 MG TABLET PO SCH (07:56)
[2021-03-22] MEDS: METOPROLOL SUCC 24HR ER 50 MG TAB.ER.24H. PO SCH ×2 (07:57→21:05)
[2021-03-22] MEDS: NYSTATIN TOPICAL POWDER 15GM BOTTLE. TP SCH (07:57)
--- NOTE | 2021-03-22 08:26 | PN ---
DATE: 03/22/2021 ATTENDING PHYSICIAN: Dr. Frye. SUBJECTIVE: She is comfortable. She just woke up. She has no insight as to what is going on. I reassured her everything is fine. OBJECTIVE FINDINGS: VITAL SIGNS: Blood pressure this morning is 146/75 mmHg. She is afebrile, pulse is 80 and regular, and her oxygen saturation is 92% on room air. HEENT: Head is without trauma. Pupils are reactive. Sclerae are nonicteric. The oropharynx is clear. NECK: Supple, no bruits. LUNGS: Good breath sounds. CARDIOVASCULAR: Regular heart tones. ABDOMEN: Soft. EXTREMITIES: Without edema. NEUROLOGIC: Having profound confusion. LABORATORY DATA: Her coronavirus swab was positive on admission, 03/17. ASSESSMENT: 1. A 80-year-old female with altered mentation, resolved. 2. Profound dementia with inability to care for self. 3. Chronic kidney disease stage 5, which is baseline for her. 4. Essential hypertension. 5. Urinary tract infection ruled out. 6. Incidental finding of positive COVID swab on admission. She remains totally asymptomatic. Her chest x-ray is clear. She has been afebrile and her oxygen saturations are normal on room air. PLAN: 1. Diet as tolerated. 2. Placement, hopefully the first part of next week. She has been accepted by this particular skilled nursing, but they could not take her over the weekend because of her COVID status. JHONY DR: Rosi TID: [id number] CC: NOLVIA PIZANO MD
[2021-03-22 10:45] VITALS: BP 156/84
[2021-03-22 15:00] VITALS: BP 102/73
[2021-03-22 19:23] VITALS: BP 107/70
[2021-03-22] MEDS: ATORVASTATIN CALCIUM 10 MG TABLET. PO SCH (21:05)
[2021-03-23 06:31] VITALS: BP 137/81
[2021-03-23] MEDS: ASPIRIN 325 MG TABLET PO SCH (08:22)
[2021-03-23] MEDS: CITALOPRAM 20 MG TABLET. PO SCH (08:22)
[2021-03-23] MEDS: LACTOBACILLUS RHAMNOSUS GG 1 CAPSULE. PO SCH (08:22)
[2021-03-23] MEDS: CHOLECALCIFEROL (VITAMIN D3) 1,000 UNIT TABLET PO SCH (08:22)
[2021-03-23] MEDS: METOPROLOL SUCC 24HR ER 50 MG TAB.ER.24H. PO SCH (08:24)
[2021-03-23] MEDS: BUMETANIDE 1 MG TABLET PO SCH (08:24)
[2021-03-23] MEDS: APIXABAN 5 MG TABLET. PO SCH (08:24)
[2021-03-23] MEDS: NYSTATIN TOPICAL POWDER 15GM BOTTLE. TP SCH (09:00)
--- NOTE | 2021-03-23 09:24 | DS ---
DATE OF DISCHARGE: 03/23/2021 ATTENDING PHYSICIAN: Dr. Frye. FINAL DISCHARGE DIAGNOSES: 1. Altered mentation, resolved. 2. Profound dementia. 3. Chronic kidney disease stage V, which is baseline. 4. Essential hypertension, normotensive. 5. Urinary tract infection ruled out. 6. Incidental finding of positive COVID swab. The patient remains totally asymptomatic. HISTORY AND PHYSICAL: The patient is a 80-year-old female who lives with an elderly who is also demented. Family members are scarce and there is a neighbor next door that is a durable power of defense attorney. She has altered mentation, confusion. She could not take care of herself; very little insight. is also demented. She was admitted here for altered mentation and eventual placement in a fci. PHYSICAL EXAMINATION: Please see my dictated note. PERTINENT LABORATORY AND X-RAY STUDIES: Admission hemoglobin was 12.8 g/dL with a white count of 10,500. Admission creatinine was 3.2 mg/dL, which is baseline for her BUN 35. Electrolytes within normal range. Serology was indeed positive for coronavirus. Her initial chest x-ray showed a questionable opacity of right perihilar area. This may be chronic, again she has no symptoms. COURSE IN THE HOSPITAL: The patient was admitted. She did not require any supplemental oxygen. She had no respiratory symptoms. We simplified her meds and her sensorium cleared, but she remained quite confused and agitated. Intermittent Ativan was administered. The neighbor and power of defense attorney requested placement of a fci. The delay was due to the long holiday weekend at [facility]. Therefore, on the Tuesday, following [facility], arrangements were made for patient to be discharged to [facility]. Her discharge meds have been simplified. They include the following: She will continue her apixaban 5 mg b.i.d., aspirin 325 daily, Lipitor 10 mg daily, bumetanide 2 mg daily, cholecalciferol, citalopram 20 mg daily, diltiazem, Zetia, metoprolol, nystatin. They will determine her code status upon arrival there. She was discharged from our hospital in stable condition with explicit drug and followup care. Total discharge time spent [address]: ARIEL/rekha TID: [id number] CC: NOLVIA PIZANO MD
[2021-03-23 11:11] VITALS: BP 89/61
[2021-03-23 15:40] VITALS: BP 101/72
--- NOTE | 2021-03-23 17:19 | NUR ---
Discharge note Pt discharged at 1700 via wheelchair accompanied by transport personnel.
== END 2021-03-23 17:21 | DRG 70 ==
LOC: ER 10:32 → 1 SOUTH 14:44 → ER 16:44
PROVIDERS: ADMIT Internal Medicine; ATTEND Internal Medicine
DX: G93.41 Metabolic encephalopathy (principal); U07.1 COVID-19; I12.0 Hypertensive chronic kidney disease with stage 5 chronic kidney disease or end stage renal disease; N18.5 Chronic kidney disease, stage 5; F03.91 Unspecified dementia, unspecified severity, with behavioral disturbance; E78.00 Pure hypercholesterolemia, unspecified; I48.0 Paroxysmal atrial fibrillation; E78.5 Hyperlipidemia, unspecified; B36.9 Superficial mycosis, unspecified; R45.1 Restlessness and agitation; R91.1 Solitary pulmonary nodule; R29.6 Repeated falls; Z91.81 History of falling; Z79.899 Other long term (current) drug therapy; Z79.82 Long term (current) use of aspirin; Z79.01 Long term (current) use of anticoagulants
CPT/HCPCS: 36415; 71045; 80053; 81001; 83690; 83735; 85025; 87077; 87086; 87186; 87426; 93005; 96361; 96365; 96375; 96376; J0696; J2060; J2270; J3490; J7120; U0003; 97110; 97116; 97530; 97535; 99285-25; J7030